=== PATIENT | male | born 1960 | race Caucasian/White ===

== ENCOUNTER 2020-04-25 18:04 | Inpatient (IN) | payer OTHER, SELFPAY ==
[2020-04-25] VITALS (20 sets, daily range): BP systolic 80–125; BP diastolic 55–106; PULSE 73–87; RESP 12–26; TEMP 36.7–37.3; O2SAT 88–98; BMI 30.6; BMI 29.7; BMI 29.8
[2020-04-25] MEDS: 0.9% Normal Saline 1,000 ML 999 ML IV ×3 (18:05→19:00)
--- NOTE | 2020-04-25 18:08 | CT_ITS ---
STUDY: CT BRAIN WITHOUT CONTRAST REASON FOR EXAM: Male, 59 years old. ALTERED MENTAL STATUS/MUMBLING RADIATION DOSAGE (If Supplied By Facility): CTDIvol = ( 44.99 ) mGy, DLP = ( 914.22 ) mGycm TECHNIQUE: Transaxial CT imaging of the brain was performed without administration of intravenous contrast material. Individualized dose optimization techniques were used for this CT. COMPARISON: No relevant priors. FINDINGS: Normal soft tissue structures. Normal calvarium. Normal size ventricles and extra-axial spaces for the patient''s age. Normal white matter tracts of the cerebral hemispheres. Normal basal ganglia and thalami. Normal brainstem. Normal cerebellum. There is no intracranial hemorrhage. There are no findings of an acute ischemic infarction. Normal visualized paranasal sinuses. CT/Brain/Head without Contrast IMPRESSION: No acute intracranial process. Electronically Signed: Sisi Cardozo MD at 19:37 EDT Tel , Service support ,
--- NOTE | 2020-04-25 18:08 | EKG12_ITS ---
Test Reason : Blood Pressure : / mmHG Vent. Rate : 080 BPM Atrial Rate : 080 BPM P-R Int : 242 ms QRS Dur : 154 ms QT Int : 442 ms P-R-T Axes : 046 -56 030 degrees QTc Int : 509 ms Sinus rhythm with 1st degree A-V block Right bundle branch block Left anterior fascicular block Bifascicular block Abnormal ECG Confirmed by MIKE HIRSCH, RAMÓN ([id number]), brands editor KIKI MIRAMONTES ([id number]) on 04/29/2020 11:03:35 AM Referred By: FRANCISCO Confirmed By:RAMÓN MCKEON MD
--- NOTE | 2020-04-25 18:18 | CT_ITS ---
STUDY: CT ABDOMEN AND PELVIS WITHOUT CONTRAST REASON FOR EXAM: Male, 59 years old. ABD PAIN N/V/D RADIATION DOSAGE (If Supplied By Facility): CTDIvol = ( 21.00 ) mGy, DLP = ( 1290.94 ) mGycm TECHNIQUE: Transaxial images were obtained from the dome of the diaphragm to the symphysis pubis without oral contrast, and without intravenous contrast. Sagittal and coronal images were reconstructed. Individualized dose optimization techniques were used for this CT. COMPARISON: None. FINDINGS: There is consolidation within the lower lobes, more pronounced on the right. The visualized portions of the heart are within normal limits. The lack of intravenous contrast limits evaluation of solid visceral organs. Normal liver. Normal gallbladder and extrahepatic biliary system. Normal spleen. Normal pancreas. Normal bilateral adrenal glands. Normal right kidney. Normal left kidney. Normal visualized stomach. Normal small intestine. There is fluid visualized throughout the colon and rectum. There is mild stranding noted adjacent to the rectum. The appendix is visualized and appears normal. There is diffuse atherosclerotic calcification of the abdominal aorta, without a demonstrated aneurysm. Normal inferior vena cava. Normal retroperitoneum. There is a Veloz catheter within an incompletely distended urinary bladder. Normal abdominal wall. Normal osseous structures. CT/Abdomen/Pelvis without Cont IMPRESSION: Fluid throughout the colon and rectum, a nonspecific finding which may be secondary to proctocolitis. Consolidation within the lower lobes, more pronounced on the right. Atherosclerosis. Electronically Signed: Sisi Cardozo MD at 19:56 EDT Tel , Service support ,
[2020-04-25 18:32] LABS: Absolute Lymphocyte Count 1.29 X10^3/uL (0.83-4.51); Absolute Neutrophil Count 15.3 X10^3/uL (2.0-7.7); Basophil# 0.04 X10^3/uL; Basophil% 0.2 % (0-1); Eosinophil# 0.21 X10^3/uL; Eosinophils% 1.1 % (0-5); Hemoglobin 13.8 g/dL (13.0-16.5); Lymphocyte # 1.29 X10^3/ul (4.0); Lymphocyte % 6.8 % (19-41); Mean Corp Hgb Conc 32.9 g/dL (32-36); Mean Corpuscular Hgb 30.8 pg (27.0-32.0); Mean Corpuscular Volume 93.8 fL (80-94); Mean Platelet Vol. 10.6 fl (6.2-12.0); Monocyte# 2.07 X10^3/uL; Monocyte% 10.9 % (0-10); NRBC Flagged by Analyzer 0 % (0-5); Neutrophil # 15.29 X10^3/uL (2.7-7.7); Neutrophil % 80.2 % (47-70); POSITIVE DIFFERENTIAL YES; POSITIVE MORPHOLOGY YES; Platelet Count 222 K/mm3 (150-450); RBC Distribution Width CV 14.6 % (11.6-14.6); Red Blood Count 4.48 M/mm3 (4.6-6.2); White Blood Count 19.1 K/mm3 (4.4-11.0)
[2020-04-25 18:36] LABS: International Normalized Ratio 3.1; Prothrombin Time (Protime)PT. 31.9 SECONDS (11.7-14.9)
[2020-04-25 18:57] LABS: ALB/GLOB Ratio 0.7 RATIO (0.9-2.4); AST(SGOT) 646 U/L (15-37); Alanine Aminotransfer ALT/SGPT 180 U/L (16-61); Albumin, Serum 2.7 g/dL (3.2-5.0); Alkaline Phosphatase 58 U/L (45-117); Anion Gap 11 (5-15); BUN 94 mg/dL (7-18); BUN/Creat Ratio 12.4 RATIO (10-20); Calcium,Total 7.7 mg/dL (8.5-10.1); Chloride 102 mmol/L (98-107); EST Glomerular Filtration Rate 8 mL/min (>60); Est Glom Filt Rate - Afr Amer 9 mL/min (>60); Estimated Creatinine Clearance 11.01 ml/min; Globulin 3.8 g/dL (2.2-4.2); Glucose 99 mg/dL (74-106); Potassium 5.4 mmol/L (3.5-5.1); Protein, Total 6.5 g/dL (6.4-8.2); Sodium Level 136 mmol/L (136-145)
[2020-04-25 19:09] LABS: Bacteria 0 SEEN /hpf (None Seen); Red Blood Cells-Urine 0 SEEN /hpf (0-5)
[2020-04-25 19:16] LABS: Color, Urine Amber (Yellow); Glucose, Dipstick 50 mg/dl (Normal); Ketone-Dipstick 5 mg/dl (Negative); Leukocyte Esterase-Dipstick 25 /ul (Negative); Nitrite-Dipstick Positive (Negative); Occult Blood-Urine 250 /ul (Negative); Protein-Dipstick 100 mg/dl (Negative); Specific Gravity, Urine 1.025 (1.002-1.030); Urine Bilirubin Dipstick 3 mg/dL (Negative); Urine Clarity Cloudy (Clear); Urine Urobilinogen 4 mg/dl (Normal)
[2020-04-25 19:18] LABS: Differential Indicated SCAN CRITERIA MET
--- NOTE | 2020-04-25 19:18 | RAD_ITS ---
STUDY: X-RAY CHEST REASON FOR EXAM: Male, 59 years old. pt from home with altered LOC per EMS. EMS states he has been declining for past 3 days. Pt responds to repeated stimulation and opens eyes but will not talk. Mumbled. TECHNIQUE: Single frontal view of the chest. COMPARISON: None. FINDINGS: There is elevation of the right hemidiaphragm. There is an ill-defined opacity within the right lower lung. Normal size heart. Normal mediastinum and danita. Normal visualized pulmonary arteries. Normal visualized aortic arch and descending thoracic aorta. Normal visualized thoracic spine. Normal visualized ribs, clavicles, and shoulders. There is no demonstrated abnormality of the visualized soft tissue structures of the upper abdomen. RAD/Chest 1 View (Portable) IMPRESSION: Right basilar atelectasis and/or pneumonia. Electronically Signed: Sisi Cardozo MD at 19:58 EDT Tel , Service support ,
[2020-04-25 19:36] LABS: Mucous, Urine 1+ /hpf (<or=2+)
[2020-04-25 19:37] LABS: Squamous Epithelial Cells - UA 0-5 SEEN /hpf (0-5); Transitional Epithelial - Ur 0-5 SEEN /hpf (0-5)
[2020-04-25 19:38] LABS: Renal Epithelial Cells 0 SEEN /hpf (0-5); White Blood Cells 0-5 SEEN /hpf (0-5)
--- NOTE | 2020-04-25 19:44 | ED.RN ---
upon arrival to ED pt was minimally responsive, only to painful stimuli. per EMS BP was 70/palp. Pt had two IV sites placed by squad and 2 liters of normal saline started. ED physician wanted those two liters to finish and an additional liter hung to get the required fluid resuscitation. Pt became responsive to verbal stimuli after BIPAP was placed and has been arousing and speaking in full sentences to and nurse since fluids have infused and BIPAP has been in place.
--- NOTE | 2020-04-25 20:00 | ED.DCSUM_ITS ---
- ER Visit Summary Date of Service: 04/25/20 Chief Complaint: Altered mental status History of Present Illness: The patient is a 59 M here by EMS. He arrives from home. His provides some history. He has not been feeling well for 3 days. He has had nausea, vomiting, diarrhea, decreased urine output and decreased oral intake. EMS thought he had slurred speech and a fever. The has not noticed any slurred speech or fevers. Patient has a history of COPD, CHF, A. fib, [place]. He takes Eliquis among his other medications. He is wheelchair-bound. He is full code but wants to avoid intubation Physical Examination: Afebrile. Initial blood pressure was 83/62 and he was 89% on a nonrebreather. Respiratory rate was 22. Patient had a GCS of 11, 3+2+6. Lungs diminished. Abdomen soft and nontender. Heart regular. Test Results: EKG showed sinus rhythm at a rate of 84 with first-degree AV block, right bundle branch block pattern and left anterior fascicular block. White count 19.1 and lactate 2.0. Potassium 5.4, BUN 94, creatinine 7.6. ALT 1 80 and AST 646. INR 3.1 and PTT is 39. Urinalysis shows leukocytes esterase, nitrites, but the microscopic did not show evidence of infection. Cultures are pending. COVID 19 testing is pending. Troponin indeterminate 0.074. CT brain showed nothing acute. CT abdomen and pelvis showed questionable proctocolitis with right lower lobe consolidation. Emergency Department Course and Treatment: Patient had 2 L started per EMS. He was on a nonrebreather but still hypoxic. He had a GCS of 11. He told me he does not want to be intubated. BiPAP was started. He had good response to BiPAP. His mental status improved. He was very alert, GCS 15. Repeat blood pressure was 102/89. I ordered an additional liter of normal saline, weight-based dosage. I suspect he is likely severe sepsis with hypovolemia. He is responding to fluids. His mental status has improved. His vitals have improved. He feels better. He will need inpatient care. I suspect with his GI symptoms, he does have some colitis. I started him on Zosyn and vancomycin. Will contact the hospitalist for further care. Chest x-ray showed possible right basilar atelectasis versus pneumonia. Patient is on antibiotics. His ABG showed pH of 7.29, CO2 33.4, O2 104. Hospitalist accepted the patient to the ICU. I spoke with Dr. Zapata from nephrology to give him a heads up. Treatment Plan: As above Disposition: Admit to ICU Impression: Hypooxic respiratory failure Severe sepsis Diarrheal illness Renal failure, hyperkalemia Hepatitis Elevated troponin This note was generated with [employer] dictation software. It may contain incorrect words, spelling, and punctuation that were not noted in review of the chart prior to signing ED Disposition - Plan for ED Patient: [facility]errals: [facility] [Primary Care Provider] -
--- NOTE | 2020-04-25 20:02 | HP.PCM_ITS ---
Problem List (1) Severe sepsis Status: Acute (2) Pneumonia Status: Acute (3) Proctocolitis Status: Acute History of Present Illness Date of Admission: 04/25/20 Chief Complaint: Lethargy The patient is a 59 year old M with a significant history of congestive heart failure; paroxysmal A. fib status post cardioversion; emphysema; fibromyalgia; and wheelchair-bound who presents emergency department with progressively worsening lethargy. His symptoms started about 5 days ago. Associated with his symptoms is nausea, vomiting and diarrhea. Further his has noticed that patient has a decreased frequency of urination and his urine output looks dark. At emergent part the patient was found to be hypotensive. He was hypoxic and he required non-rebreather mask. Later he was transitioned onto a BiPAP. His creatinine was severely elevated at 7.70. Past Medical History Medical History: Medical History (Last Reviewed 04/26/20 @ 01:[address] Michel Salcido MD) Emphysema of lung J43.9 Paroxysmal A-fib I48.0 Allergies No Known Allergies Allergy (Verified 04/25/20 18:11) Home Medications: Ambulatory Orders Medication Instructions Recorded Unobtainable 04/25/20 Surgical History: tonsillectomy, - - Temporal artery biopsy Lives: Spouse/ Significant Other Smoking Status: Former smoker Alcohol: None - *Family History Maternal History Items: - - Patient was adopted and does not know maternal medical history. Paternal History Items: - - Patient was adopted and does not know paternal medical history. Review of Systems Constitutional: Reports: Anorexia, Chills, Malaise, Weakness, Fatigue. Denies: Fever, Weight Change HEENT: Denies: Head Aches, Sinus Congestion, Sinus Drainage Cardiovascular: Denies: Chest Pain, Palpitations Respiratory: Reports: Shortness of Breath. Denies: Cough, Shortness of breath at rest, Sputum production Gastrointestinal: Reports: Diarrhea, Nausea, Vomiting. Denies: Abdominal Pain Genitourinary: Denies: Dysuria Musculoskeletal: Denies: Joint Pain, Joint Tenderness Skin: Denies: Rash, Wounds Neurological: Denies: Numbness, Tingling, Focal weakness Psychiatric: Denies: Anxiety, Depression, Homicidal Ideations, Suicidal Ideations Hematologic/ Lymphatic: Denies: Easy Bruising, Easy Bleeding VTE Information - Inpt Only VTE Present on Admission: No VTE Mechan Device Prophylaxis: None VTE Pharm Prophylaxis ordered?: Yes Patient Problems: Active and Suspected Problems (Last Updated 04/26/20 @ 01:[address] Michel Salcido MD) Severe sepsis (Acute) Pneumonia (Acute) Proctocolitis (Acute) - Physical Exam Vitals/I&O's: Vital Signs Temp Pulse Resp BP Pulse Ox 99.2 F H 77 18 102/89 H 94 04/25/20 19:05 04/25/20 19:05 04/25/20 19:05 04/25/20 19:05 04/25/20 19:05 Oxygen Delivery Method Bi-pap Weight: 99.5 kg Body Mass Index (BMI) 30.6 Finger Stick Blood Glucose 122 Intake and Output for Last 24 Hours 04/23/20 04/24/20 04/25/20 23:59 23:59 23:59 Intake Total 1000 / 1000 Balance 1000 / 1000 General: Alert, Oriented x3, Cooperative HEENT: Atraumatic, PERRLA, EOMI, Normocephalic Neck: Supple, No JVD, Negative Carotid Bruits Lungs: Rales - Right base, Tachypneic, Using Accessory Muscles Cardiovascular: Regular rate, Normal S1, Normal S2, No murmurs Abdomen: Bowel Sounds Present, Soft, Non Tender Extremities: No edema, Capillary Refill Less than 3 Seconds Skin: No rashes, No breakdown Musculoskeletal: No Tenderness to Palpation of Joints or Extremities Neurological: Cranial nerves II-XII grossly intact Psych/Mental Status: Normal Affect, Appropriate Laboratory Results 04/25/20 18:10: WBC 19.1 H, RBC 4.48 L, Hgb 13.8, Hct 42.0, MCV 93.8, MCH 30.8, MCHC 32.9, RDW Std Deviation 50.0 H, RDW Coeff of Stephenie 14.6, Plt Count 222, MPV 10.6, Immature Gran % (Auto) 0.800, Neut % (Auto) 80.2 H, Lymph % (Auto) 6.8 L, [place] % (Auto) 10.9 H, Eos % (Auto) 1.1, Baso % (Auto) 0.2, Absolute Neuts (auto) 15.3 H, Absolute Lymphs (auto) 1.29, Nucleated RBC % 0, Differential Comment , Diff Path Review March04/25/20 18:10: PT 31.9 H, INR 3.1, APTT 39.0 H 04/25/20 18:10: Sodium 136, Potassium 5.4 H, Chloride 102, Carbon Dioxide 23.0, Anion Gap 11, BUN 94 H, Creatinine 7.60 H*, Estim Creat Clear Calc 11.01, Est GFR (MDRD) Af Amer 9 L, Est GFR (MDRD) Non-Af 8 L, BUN/Creatinine Ratio 12.4, Glucose 99, Calcium 7.7 L, Total Bilirubin 0.80, AST 646 H, ALT 180 H, Alkaline Phosphatase 58, Troponin I 0.074 H, Total Protein 6.5, Albumin 2.7 L, Globulin 3.8, Albumin/Globulin Ratio 0.7 L 04/25/20 18:10: Lactic Acid 2.0 04/25/20 18:20: COVID-19 (HERMILA) Pending 04/25/20 18:55: Urine Color Bernadette, Urine Clarity Cloudy, Urine pH 5.0, Ur Specific Mershon 1.025, Urine Protein 100 H, Urine Glucose (UA) 50 H, Urine Ket ones 5 H, Urine Occult Blood 250 H, Urine Nitrite Positive H, Urine Bilirubin 3 H, Urine Urobilinogen 4 H, Ur Leukocyte Esterase 25 H, Urine RBC 0 SEEN, Urine WBC 0-5 SEEN, Ur Squamous Epith Cells 0-5 SEEN, Ur Transition Epith Cell 0-5 SEEN, Ur Renal Epithelial Cell 0 SEEN, Urine Bacteria 0 SEEN, Urine Mucus 1+ Current Medications Piperacillin Sod/Tazobactam (Sod 3.375 gm/ Sodium Chloride) 50 mls @ 100 mls/hr IV X1 ONE Stop: 04/25/20 20:27 Vancomycin HCl 1,500 mg/ (Sodium Chloride) 530 mls @ 250 mls/hr IV X1 ONE Stop: 04/25/20 22:37 Assessment/Plan All Active Problems (Last Updated 04/26/20 @ 01:[address] Michel Salcido MD) Severe sepsis (Acute) Pneumonia (Acute) Proctocolitis (Acute) The patient is a 59 year old M with a significant history of congestive heart fa ilure; paroxysmal A. fib status post cardioversion; emphysema; fibromyalgia; and wheelchair-bound who presents emergency department with progressively worsening lethargy; and found to have hypotension; tachypnea; leukocytosis; elevated creatinine; elevated lactic acid; and radiographic evidence of right basal atelectasis and or/pneumonia; and abdomen pelvis CT findings of fluid through the colon and rectum showing consolidation within the lower lobes of the lung. Severe sepsis Likely secondary to pneumonia and proctocolitis. Received vancomycin and Zosyn at emergency department. Because patient is in VON I will not continue Zosyn. Cefepime ordered. Vancomycin IV ordered. Will treat empirically for C. difficile. We will get stool studies including C. difficile studies. Received at 30 MS per kilogram bolus of normal saline per septic shock protocol. We will continue patient on maintenance normal saline infusion. Blood cultures ordered at emergency department; follow. Initial lactic acid was 2. Trended. Repeat lactic was 2.2. Admit to intensive care unit. Wooden Bar[employer]ic consult. Covid screen was negative. Chest x-ray does not look viral pattern. Less risk of cough. Community-acquired pneumonia Likely gram-positive or gram-negative. Vancomycin and cefepime ordered. Strep pneumonia and Legionella urine antigen ordered. Placed on BiPAP at emergency department; continued. Treatment as above. Acute proctocolitis CT of abdomen and pelvics pointed towards acute proctocolitis. reports history of diverticulitis. Treatment with cefepime and vancomycin. N.p.o. for now. VON: On presentation his creatinine was 7.6. Review of community records show that on 07/19/2019 his creatinine was 1.32. His BUN on presentation was 94. BUN over creatinine is 12.4. Likely prerenal going into intrinsic renal. Likely secondary to severe dehydration and severe sepsis. Discussed emergency department doctor to notify commercial pilot. Nephrology will follow. Inpatient ne phrology consult. Trend BMP. Avoid nephrotoxins. IV hydration. Rhabdomyolysis Patient with microscopic hematuria. CPK was ordered. It returned as 25,268. IV fluids as above. History of congestive heart failure Records including echocardiogram are not available. [facility] Judicious use of IV fluids. Elevated troponin Like secondary to demand ischemia Trend. Elevated liver enzymes Likely second to severe sepsis. Trend. Noted to have elevated INR. Trend INR. DVT prophylaxis Subcutaneous Lovenox. Inpatient E&M: [id number] Init Hosp L3
[2020-04-25 20:50] LABS: Blood Gas Specimen Type ART; EPAP 10; FI02 80; IPAP 20; O2 Delivery Device Bi Pap; SITE R RADIAL; Time Given 2005
[2020-04-25 20:51] LABS: Bicarbonate 16.4 mmol/L (22-26); PO2 104 mmHG (75-100); SO2 97 % (95-99); Total Carbon Dioxide 17 mmol/L; pCO2 33.4 mmHg (35-45); pH 7.29 (7.35-7.45)
--- NOTE | 2020-04-25 21:30 | ED.RN ---
Report called to icu, report give to JANAY Santana.
[2020-04-25 22:22] LABS: Reflex Lactate? Y
[2020-04-25] MEDS: 0.9% Normal Saline 1,000 ML 100 ML IV (23:21)
[2020-04-25] MEDS: Heparin Injection (Vial) 5,000 UNIT/ML VIAL 5000 UNIT SC (23:22)
[2020-04-25 23:25] LABS: Lactic Acid 2.2 mmol/L (0.4-1.9)
[2020-04-25] MEDS: 0.9% Saline Lock 10 ML Syringe IV (23:29)
[2020-04-26] VITALS (47 sets, daily range): BP systolic 66–127; BP diastolic 32–106; PULSE 68–113; RESP 12–26; TEMP 36.4–38.8; O2SAT 87–99
[2020-04-26 00:32] LABS: CPK Total, Creatine Kinase 25268 U/L (39-308)
[2020-04-26] MEDS: Acetaminophen 325 MG Tablet 650 MG PO (00:38)
[2020-04-26 00:43] LABS: M R Staph aureus DNA By PCR Negative (Negative); Probe Check PASS; Specimen Processing Control PASS
[2020-04-26] MEDS: 0.9% Saline Lock 10 ML Syringe IV ×2 (02:16→10:24)
--- NOTE | 2020-04-26 03:10 | PCM.RX.CS ---
Consult Pharmacy has been consulted to manage selected antiobiotic: Vancomycin Type of Consult: New start Suspected Infection: Sepsis Labs: Sodium 136 mmol/L (136-145) 04/25/20 18:10 Potassium 5.4 mmol/L (3.5-5.1) H 04/25/20 18:10 Chloride 102 mmol/L (98-107) 04/25/20 18:10 Carbon Dioxide 23.0 mmol/L (21.0-32.0) 04/25/20 18:10 Anion Gap 11 (5-15) 04/25/20 18:10 BUN 94 mg/dL (7-18) H 04/25/20 18:10 Creatinine 7.60 mg/dL (0.70-1.30) H* 04/25/20 18:10 Est GFR (MDRD) Af Amer 9 mL/min (>60) L 04/25/20 18:10 Est GFR (MDRD) Non-Af 8 mL/min (>60) L 04/25/20 18:10 BUN/Creatinine Ratio 12.4 RATIO (10-20) 04/25/20 18:10 Glucose 99 mg/dL (74-106) 04/25/20 18:10 Microbiology: Microbiology 04/25/20 22:15 Stool C. difficile DNA Amplification - Final 04/25/20 22:15 Stool Stool Lactoferrin - Final 04/25/20 18:55 Urine Catheter - Catheter Legionella Antigen - Final 04/25/20 18:55 Urine Catheter - Catheter Streptococcus pneumoniae Antigen (M - Final Goal Trough: 15-20 mcg/mL Pharmacy Plan for Drug Dosing: Pharmacy Service will continue to monitor and adjust dosing as required. Medications Discontinued Medications Vancomycin HCl 1,500 mg/ (Sodium Chloride) 530 mls @ 250 mls/hr IV X1 ONE Stop: 04/25/20 22:37 Last Admin: 04/25/20 23:18 Dose: Infused Documented by: Due to crcl < 20 and not on HD, random trough ordered for 04/27 with am labs, next dose to be ordered based on random lavel. Follow-Up Labs: Trough Vancomycin Labs to be done on [date and time ordered]: RANDOM 04/27 WITH AM LABS
--- NOTE | 2020-04-26 03:40 | SEPSISNOTE ---
Sepsis Note - Physical Exam/Vitals Objective: Brain CT 04/25/20 18:08 IMPRESSION: No acute intracranial process. Electronically Signed: Sisi Cardozo MD at 19:37 EDT Tel , Service support , Abdomen/Pelvis CT 04/25/20 18:18 IMPRESSION: Fluid throughout the colon and rectum, a nonspecific finding which may be secondary to proctocolitis. Consolidation within the lower lobes, more pronounced on the right. Atherosclerosis. Electronically Signed: Sisi Cardozo MD at 19:56 EDT Tel , Service support , Chest X-Ray 04/25/20 19:18 IMPRESSION: Right basilar atelectasis and/or pneumonia. Electronically Signed: Sisi Cardozo MD at 19:58 EDT Tel , Service support , Temp Pulse Resp BP Pulse Ox 100.7 F H 79 18 84/64 L 97 04/26/20 02:00 04/26/20 03:30 04/26/20 03:30 04/26/20 03:30 04/26/20 03:30 04/26/20 04/25/20 04/25/20 01:15 22:30 22:30 WBC RBC Hgb Hct MCV MCH MCHC RDW Std Deviation RDW Coeff of Stephenie Plt Count MPV Immature Gran % (Auto) Neut % (Auto) Lymph % (Auto) [place] % (Auto) Eos % (Auto) Baso % (Auto) Absolute Neuts (auto) Absolute Lymphs (auto) Nucleated RBC % Differential Comment Diff Path Review PT INR APTT Specimen Type Sample Site pH Bicarbonate Actual POC Total CO2 Base Excess O2 Saturation O2 % ABG pCO2 ABG pO2 Jb Test O2 Delivery Device EPAP IPAP Blood Gas Notified Whom Blood Gas Notified Time Sodium Potassium Chloride Carbon Dioxide Anion Gap BUN Creatinine Estim Creat Clear Calc Est GFR (MDRD) Af Amer Est GFR (MDRD) Non-Af BUN/Creatinine Ratio Glucose Lactic Acid 2.2 H* Calcium Phosphorus Magnesium Total Bilirubin AST ALT Alkaline Phosphatase Total Creatine Kinase Troponin I 0.075 H Total Protein Albumin Globulin Albumin/Globulin Ratio Urine Color Urine Clarity Urine pH Ur Specific [place] Urine Protein Urine Glucose (UA) Urine Ketones Urine Occult Blood Urine Nitrite Urine Bilirubin Urine Urobilinogen Ur Leukocyte Esterase Urine RBC Urine WBC Ur Squamous Epith Cells Ur Transition Epith Cell Ur Renal Epithelial Cell Urine Bacteria Urine Mucus Stl Giardia Antigen COVID-19 (HERMILA) Hepatitis A IgM Ab Hep Bs Antigen Hep B Core IgM Ab Hepatitis C Ab (EIA) MRSA (PCR) Negative 04/25/20 04/25/20 04/25/20 22:15 22:15 22:15 WBC RBC Hgb Hct MCV MCH MCHC RDW Std Deviation RDW Coeff of Stephenie Plt Count MPV Immature Gran % (Auto) Neut % (Auto) Lymph % (Auto) [place] % (Auto) Eos % (Auto) Baso % (Auto) Absolute Neuts (auto) Absolute Lymphs (auto) Nucleated RBC % Differential Comment Diff Path Review PT INR APTT Specimen Type Sample Site pH Bicarbonate Actual POC Total CO2 Base Excess O2 Saturation O2 % ABG pCO2 ABG pO2 Jb Test O2 Delivery Device EPAP IPAP Blood Gas Notified Whom Blood Gas Notified Time Sodium Potassium Chloride Carbon Dioxide Anion Gap BUN Creatinine Estim Creat Clear Calc Est GFR (MDRD) Af Amer Est GFR (MDRD) Non-Af BUN/Creatinine Ratio Glucose Lactic Acid Calcium Phosphorus Pending Magnesium Pending Total Bilirubin AST ALT Alkaline Phosphatase Total Creatine Kinase Troponin I 0.067 H Total Protein Albumin Globulin Albumin/Globulin Ratio Urine Color Urine Clarity Urine pH Ur Specific [place] Urine Protein Urine Glucose (UA) Urine Ketones Urine Occult Blood Urine Nitrite Urine Bilirubin Urine Urobilinogen Ur Leukocyte Esterase Urine RBC Urine WBC Ur Squamous Epith Cells Ur Transition Epith Cell Ur Renal Epithelial Cell Urine Bacteria Urine Mucus Stl Giardia Antigen Pending COVID-19 (HERMILA) Hepatitis A IgM Ab Hep Bs Antigen Hep B Core IgM Ab Hepatitis C Ab (EIA) MRSA (PCR) 04/25/20 04/25/20 04/25/20 22:15 22:15 20:05 WBC RBC Hgb Hct MCV MCH MCHC RDW Std Deviation RDW Coeff of Stephenie Plt Count MPV Immature Gran % (Auto) Neut % (Auto) Lymph % (Auto) [place] % (Auto) Eos % (Auto) Baso % (Auto) Absolute Neuts (auto) Absolute Lymphs (auto) Nucleated RBC % Differential Comment Diff Path Review PT INR APTT Specimen Type ART Sample Site R RADIAL pH 7.29 L Bicarbonate Actual 16.4 L POC Total CO2 17 Base Excess Pending O2 Saturation 97 O2 % 80 ABG pCO2 33.4 L ABG pO2 104 H Jb Test NA O2 Delivery Device Bi Pap EPAP 10 IPAP 20 Blood Gas Notified Whom ED Blood Gas Notified Time 2004 Sodium Potassium Chloride Carbon Dioxide Anion Gap BUN Creatinine Estim Creat Clear Calc Est GFR (MDRD) Af Amer Est GFR (MDRD) Non-Af BUN/Creatinine Ratio Glucose Lactic Acid Calcium Phosphorus Magnesium Total Bilirubin AST ALT Alkaline Phosphatase Total Creatine Kinase 13408 H Troponin I Total Protein Albumin Globulin Albumin/Globulin Ratio Urine Color Urine Clarity Urine pH Ur Specific [place] Urine Protein Urine Glucose (UA) Urine Ketones Urine Occult Blood Urine Nitrite Urine Bilirubin Urine Urobilinogen Ur Leukocyte Esterase Urine RBC Urine WBC Ur Squamous Epith Cells Ur Transition Epith Cell Ur Renal Epithelial Cell Urine Bacteria Urine Mucus Stl Giardia Antigen Cancelled COVID-19 (HERMILA) Hepatitis A IgM Ab Pending Hep Bs Antigen Pending Hep B Core IgM Ab Pending Hepatitis C Ab (EIA) Pending MRSA (PCR) 04/25/20 04/25/20 04/25/20 18:55 18:20 18:10 WBC RBC Hgb Hct MCV MCH MCHC RDW Std Deviation RDW Coeff of Stephenie Plt Count MPV Immature Gran % (Auto) Neut % (Auto) Lymph % (Auto) [place] % (Auto) Eos % (Auto) Baso % (Auto) Absolute Neuts (auto) Absolute Lymphs (auto) Nucleated RBC % Differential Comment Diff Path Review PT INR APTT Specimen Type Sample Site pH Bicarbonate Actual POC Total CO2 Base Excess O2 Saturation O2 % ABG pCO2 ABG pO2 Jb Test O2 Delivery Device EPAP IPAP Blood Gas Notified Whom Blood Gas Notified Time Sodium Potassium Chloride Carbon Dioxide Anion Gap BUN Creatinine Estim Creat Clear Calc Est GFR (MDRD) Af Amer Est GFR (MDRD) Non-Af BUN/Creatinine Ratio Glucose Lactic Acid 2.0 Calcium Phosphorus Magnesium Total Bilirubin AST ALT Alkaline Phosphatase Total Creatine Kinase Troponin I Total Protein Albumin Globulin Albumin/Globulin Ratio Urine Color [place]ette Urine Clarity Cloudy Urine pH 5.0 Ur Specific [place] 1.025 Urine Protein 100 H Urine Glucose (UA) 50 H Urine Ketones 5 H Urine Occult Blood 250 H Urine Nitrite Positive H Urine Bilirubin 3 H Urine Urobilinogen 4 H Ur Leukocyte Esterase 25 H Urine RBC 0 SEEN Urine WBC 0-5 SEEN Ur Squamous Epith Cells 0-5 SEEN Ur Transition Epith Cell 0-5 SEEN Ur Renal Epithelial Cell 0 SEEN Urine Bacteria 0 SEEN Urine Mucus 1+ Stl Giardia Antigen COVID-19 (HERMILA) Not Detected Hepatitis A IgM Ab Hep Bs Antigen Hep B Core IgM Ab Hepatitis C Ab (EIA) MRSA (PCR) 04/25/20 04/25/20 04/25/20 18:10 18:10 18:10 WBC 19.1 H RBC 4.48 L Hgb 13.8 Hct 42.0 MCV 93.8 MCH 30.8 MCHC 32.9 RDW Std Deviation 50.0 H RDW Coeff of Stephenie 14.6 Plt Count 222 MPV 10.6 Immature Gran % (Auto) 0.800 Neut % (Auto) 80.2 H Lymph % (Auto) 6.8 L [place] % (Auto) 10.9 H Eos % (Auto) 1.1 Baso % (Auto) 0.2 Absolute Neuts (auto) 15.3 H Absolute Lymphs (auto) 1.29 Nucleated RBC % 0 Differential Comment Diff Path Review May foll PT 31.9 H INR 3.1 APTT 39.0 H Specimen Type Sample Site pH Bicarbonate Actual POC Total CO2 Base Excess O2 Saturation O2 % ABG pCO2 ABG pO2 Jb Test O2 Delivery Device EPAP IPAP Blood Gas Notified Whom Blood Gas Notified Time Sodium 136 Potassium 5.4 H Chloride 102 Carbon Dioxide 23.0 Anion Gap 11 BUN 94 H Creatinine 7.60 H* Estim Creat Clear Calc 11.01 Est GFR (MDRD) Af Amer 9 L Est GFR (MDRD) Non-Af 8 L BUN/Creatinine Ratio 12.4 Glucose 99 Lactic Acid Calcium 7.7 L Phosphorus Magnesium Total Bilirubin 0.80 AST 646 H ALT 180 H Alkaline Phosphatase 58 Total Creatine Kinase Troponin I 0.074 H Total Protein 6.5 Albumin 2.7 L Globulin 3.8 Albumin/Globulin Ratio 0.7 L Urine Color Urine Clarity Urine pH Ur Specific [place] Urine Protein Urine Glucose (UA) Urine Ketones Urine Occult Blood Urine Nitrite Urine Bilirubin Urine Urobilinogen Ur Leukocyte Esterase Urine RBC Urine WBC Ur Squamous Epith Cells Ur Transition Epith Cell Ur Renal Epithelial Cell Urine Bacteria Urine Mucus Stl Giardia Antigen COVID-19 (HERMILA) Hepatitis A IgM Ab Hep Bs Antigen Hep B Core IgM Ab Hepatitis C Ab (EIA) MRSA (PCR) - Attestation Sepsis Attestation: Sepsis re-evaluation was performed - With systolic blood pressure less than 90 after receiving 30 mg/kg bolus of IV normal saline will order Levophed to keep map above 65.
[2020-04-26] MEDS: TITRATION PARAMETER CHANGE 1 EACH IV ×2 (04:06→14:01)
[2020-04-26 05:00] LABS: Absolute Lymphocyte Count 0.83 X10^3/uL (0.83-4.51); Absolute Neutrophil Count 11.6 X10^3/uL (2.0-7.7); Basophil# 0.03 X10^3/uL; Basophil% 0.2 % (0-1); Eosinophil# 0.01 X10^3/uL; Eosinophils% 0.1 % (0-5); Hematocrit 38.1 % (40-54); Hemoglobin 12.1 g/dL (13.0-16.5); Lymphocyte # 0.83 X10^3/ul (4.0); Lymphocyte % 6.1 % (19-41); Mean Corp Hgb Conc 31.8 g/dL (32-36); Mean Corpuscular Hgb 30.7 pg (27.0-32.0); Mean Corpuscular Volume 96.7 fL (80-94); Mean Platelet Vol. 10.8 fl (6.2-12.0); Monocyte# 1.02 X10^3/uL; Monocyte% 7.5 % (0-10); NRBC Flagged by Analyzer 0 % (0-5); Neutrophil # 11.62 X10^3/uL (2.7-7.7); Neutrophil % 85.8 % (47-70); POSITIVE MORPHOLOGY YES; Platelet Count 183 K/mm3 (150-450); RBC Distribution Width CV 14.9 % (11.6-14.6); RBC Distribution Width SD 52.7 fl (35.1-43.9); Red Blood Count 3.94 M/mm3 (4.6-6.2); White Blood Count 13.6 K/mm3 (4.4-11.0)
[2020-04-26 05:01] LABS: Differential Indicated SCAN CRITERIA MET
[2020-04-26 05:08] LABS: Prothrombin Time (Protime)PT. 30.8 SECONDS (11.7-14.9)
[2020-04-26] MEDS: Heparin Injection (Vial) 5,000 UNIT/ML VIAL 5000 UNIT SC (05:44)
[2020-04-26 05:47] LABS: ALB/GLOB Ratio 0.7 RATIO (0.9-2.4); AST(SGOT) 623 U/L (15-37); Alanine Aminotransfer ALT/SGPT 160 U/L (16-61); Albumin, Serum 2.3 g/dL (3.2-5.0); Alkaline Phosphatase 52 U/L (45-117); Anion Gap 12 (5-15); BUN 106 mg/dL (7-18); BUN/Creat Ratio 13.3 RATIO (10-20); Calcium,Total 6.7 mg/dL (8.5-10.1); Chloride 106 mmol/L (98-107); Creatinine, Serum 7.95 mg/dL (0.70-1.30); EST Glomerular Filtration Rate 7 mL/min (>60); Est Glom Filt Rate - Afr Amer 9 mL/min (>60); Estimated Creatinine Clearance 10.85 ml/min; Globulin 3.5 g/dL (2.2-4.2); Glucose 100 mg/dL (74-106); Potassium 6.3 mmol/L (3.5-5.1); Protein, Total 5.8 g/dL (6.4-8.2); Sodium Level 138 mmol/L (136-145)
[2020-04-26 06:01] LABS: Differential Comment SCANNED
--- NOTE | 2020-04-26 06:02 | PCM.CON.CC ---
Reason for Consult Date of Consultation: 04/26/20 Reason for Consultation: Severe sepsis History of Present Illness: The patient is a 59-year-old male, with a history as outlined below, who presented to the emergency department on April 25 with a constellation of symptoms including altered mentation, nausea, vomiting, diarrhea, decreased p.o. intake and fever. History pertinent to the patient's hospitalization was obtained primarily via chart review, as the patient is currently too lethargic to answer questions. I did call and personally speak with the patient's , Tena, who indicated that the patient has been ill for approximately 5 days. She stated that his symptoms initially began when he started acting strangely. Around Tuesday of this past week, the patient developed nausea, emesis and diarrhea. She also reported a decrease in his urine output and dark-colored urine of several weeks duration. She stated that much of what the patient was saying did not make sense to her. The patient is wheelchair-bound at his baseline. He does have a prior smoking history. The patient's did confirm that he should remain a full code and proceed with intubation, if clinically indicated. On presentation to the emergency department, the patient was noted to be afebrile. Hemodynamics were rather tenuous. The patient was hypoxemic and tachypneic, requiring the initiation of BiPAP therapy. Laboratory evaluation revealed an elevated white blood cell count to 19,000. INR was elevated at 3.1. Chemistry profile was notable for a potassium of 5.4, BUN of 94 and creatinine of 7.60. Lactate was elevated to 2.0. AST and ALT were increased to 646 and 180, respectively. Total CK was increased to 25,268. Initial troponin was mildly elevated to 0.074. Urinalysis was positive for nitrites and leukocyte esterase. Coronavirus PCR was negative. CT head revealed no acute intracranial process. CT abdomen/pelvis revealed fluid throughout the colon and rectum, which could be secondary to proctocolitis. There was also evidence of bibasilar consolidation, more pronounced in the right lung. The patient received supplemental IV fluid hydration and was started on broad-spectrum antimicrobials. He was subsequently admitted to the medical intensive care unit for further management. Over concerns for patient lethargy and impending respiratory failure, following discussion with the patient's , the decision was made to intubate the patient for airway protection. Bedside Intubation Indication: Impending Respiratory Failure Consent was obtained from: The patient was placed in the appropriate sniffing position. Preoxygenated sedation via BIPAP was provided for a minimum of 3 minutes. The patient had continuous cardiac as well as pulse oximetry monitoring during the procedure. Procedure sedation was provided by the administration of 4mg of versed and 20mg of Etomidate. Direct laryngoscopy was then performed using a number 4 mac blade, which revealed a grade 1 view. A 8.0 mm endotracheal tube was visualized advancing between the cords to the level of 24 cm at the lip. The stylette was then removed and discarded. Tube placement was confirmed by fogging in the tube along with equal and bilateral breath sounds. Colorimetric change was visualized on the CO2 meter. The cuff was then inflated and the tube secured using a commercially available device. A good pulse oximetry waveform was seen on the monitor throughout the procedure. A portable chest x-ray has been ordered to confirm appropriate placement. The patient tolerated the procedure well. Past Medical History Medical History: Medical History (Last Reviewed 04/26/20 @ 01:[address] Michel Salcido MD) Emphysema of lung J43.9 Paroxysmal A-fib I48.0 Allergies No Known Allergies Allergy (Verified 04/25/20 18:11) Home Medications: Ambulatory Orders Medication Instructions Recorded Unobtainable 04/25/20 Surgical History: tonsillectomy, - - Temporal artery biopsy Lives: Spouse/ Significant Other Smoking Status: Former smoker Alcohol: None - *Family History Maternal History Items: - - Patient was adopted and does not know maternal medical history. Paternal History Items: - - Patient was adopted and does not know paternal medical history. Review of Systems Unable to obtain accurate/complete ROS d/t: Due to encephalopathy Patient Problems: Active and Suspected Problems (Last Reviewed 04/26/20 @ 01:[address] Michel Salcido MD) Septic shock (Acute) Objective: The patient's most recent lab work, culture data and imaging studies have all been personally reviewed. - Physical Exam Vitals/I&O's: Vital Signs Temp Pulse Resp BP Pulse Ox 101.6 F H 87 20 H 100/64 96 04/26/20 04:44 04/26/20 05:45 04/26/20 05:30 04/26/20 05:45 04/26/20 05:30 Oxygen Delivery Method Bi-pap Weight: 220 lb 3.869 oz Body Mass Index (BMI) 29.7 Finger Stick Blood Glucose 122 Intake and Output for Last 24 Hours 04/24/20 04/25/20 04/26/20 23:59 23:59 23:59 Intake Total 3680 / 3740 709.65 / 709.65 Output Total 110 / 110 Balance 3680 / 3690 599.65 / 599.65 General: Lethargic, - - Will open eyes transiently to both verbal and tactile stimulation. Appears acutely ill. HEENT: Atraumatic, Normocephalic Oral: Dry Mucosa, - - BiPAP mask in place Neck: Supple, No Nodes, Trachea Midline Lungs: No rhonchi, No wheeze, Diminished, Rales, Tachypneic Cardiovascular: Normal S1, Normal S2, Tachycardic Abdomen: Bowel Sounds Present, Soft, Distended, Tender Extremities: No clubbing, No cyanosis, No edema Skin: No breakdown Musculoskeletal: No Muscle Wasting Lymphatic: No Cervical, Supraclavicular, or Inguinal Adenopathy Neurological: - - No readily identifiable focal neurological deficits Psych/Mental Status: Flat Affect Labs (Last 48 Hours) 04/25/20 04/25/20 04/25/20 18:10 18:10 18:10 WBC 19.1 H RBC 4.48 L Hgb 13.8 Hct 42.0 MCV 93.8 MCH 30.8 MCHC 32.9 RDW Std Deviation 50.0 H RDW Coeff of Stephenie 14.6 Plt Count 222 MPV 10.6 Immature Gran % (Auto) 0.800 Neut % (Auto) 80.2 H Lymph % (Auto) 6.8 L Rock % (Auto) 10.9 H Eos % (Auto) 1.1 Baso % (Auto) 0.2 Absolute Neuts (auto) 15.3 H Absolute Lymphs (auto) 1.29 Nucleated RBC % 0 Differential Comment Diff Path Review March foll PT 31.9 H INR 3.1 APTT 39.0 H Specimen Type Sample Site pH Bicarbonate Actual POC Total CO2 Base Excess O2 Saturation O2 % ABG pCO2 ABG pO2 Jb Test O2 Delivery Device EPAP IPAP Blood Gas Notified Whom Blood Gas Notified Time Sodium 136 Potassium 5.4 H Chloride 102 Carbon Dioxide 23.0 Anion Gap 11 BUN 94 H Creatinine 7.60 H* Estim Creat Clear Calc 11.01 Est GFR (MDRD) Af Amer 9 L Est GFR (MDRD) Non-Af 8 L BUN/Creatinine Ratio 12.4 Glucose 99 Lactic Acid Calcium 7.7 L Phosphorus Magnesium Total Bilirubin 0.80 AST 646 H ALT 180 H Alkaline Phosphatase 58 Total Creatine Kinase Troponin I 0.074 H Total Protein 6.5 Albumin 2.7 L Globulin 3.8 Albumin/Globulin Ratio 0.7 L Urine Color Urine Clarity Urine pH Ur Specific [place] Urine Protein Urine Glucose (UA) Urine Ketones Urine Occult Blood Urine Nitrite Urine Bilirubin Urine Urobilinogen Ur Leukocyte Esterase Urine RBC Urine WBC Ur Squamous Epith Cells Ur Transition Epith Cell Ur Renal Epithelial Cell Urine Bacteria Urine Mucus Stl Giardia Antigen COVID-19 (HERMILA) Hepatitis A IgM Ab Hep Bs Antigen Hep B Core IgM Ab Hepatitis C Ab (EIA) MRSA (PCR) 04/25/20 04/25/20 04/25/20 18:10 18:20 18:55 WBC RBC Hgb Hct MCV MCH MCHC RDW Std Deviation RDW Coeff of Stephenie Plt Count MPV Immature Gran % (Auto) Neut % (Auto) Lymph % (Auto) Rock % (Auto) Eos % (Auto) Baso % (Auto) Absolute Neuts (auto) Absolute Lymphs (auto) Nucleated RBC % Differential Comment Diff Path Review PT INR APTT Specimen Type Sample Site pH Bicarbonate Actual POC Total CO2 Base Excess O2 Saturation O2 % ABG pCO2 ABG pO2 Jb Test O2 Delivery Device EPAP IPAP Blood Gas Notified Whom Blood Gas Notified Time Sodium Potassium Chloride Carbon Dioxide Anion Gap BUN Creatinine Estim Creat Clear Calc Est GFR (MDRD) Af Amer Est GFR (MDRD) Non-Af BUN/Creatinine Ratio Glucose Lactic Acid 2.0 Calcium Phosphorus Magnesium Total Bilirubin AST ALT Alkaline Phosphatase Total Creatine Kinase Troponin I Total Protein Albumin Globulin Albumin/Globulin Ratio Urine Color Bernadette Urine Clarity Cloudy Urine pH 5.0 Ur Specific [place] 1.025 Urine Protein 100 H Urine Glucose (UA) 50 H Urine Ketones 5 H Urine Occult Blood 250 H Urine Nitrite Positive H Urine Bilirubin 3 H Urine Urobilinogen 4 H Ur Leukocyte Esterase 25 H Urine RBC 0 SEEN Urine WBC 0-5 SEEN Ur Squamous Epith Cells 0-5 SEEN Ur Transition Epith Cell 0-5 SEEN Ur Renal Epithelial Cell 0 SEEN Urine Bacteria 0 SEEN Urine Mucus 1+ Stl Giardia Antigen COVID-19 (HERMILA) Not Detected Hepatitis A IgM Ab Hep Bs Antigen Hep B Core IgM Ab Hepatitis C Ab (EIA) MRSA (PCR) 04/25/20 04/25/20 04/25/20 20:05 22:15 22:15 WBC RBC Hgb Hct MCV MCH MCHC RDW Std Deviation RDW Coeff of Stephenie Plt Count MPV Immature Gran % (Auto) Neut % (Auto) Lymph % (Auto) Rock % (Auto) Eos % (Auto) Baso % (Auto) Absolute Neuts (auto) Absolute Lymphs (auto) Nucleated RBC % Differential Comment Diff Path Review PT INR APTT Specimen Type ART Sample Site R RADIAL pH 7.29 L Bicarbonate Actual 16.4 L POC Total CO2 17 Base Excess Pending O2 Saturation 97 O2 % 80 ABG pCO2 33.4 L ABG pO2 104 H Jb Test NA O2 Delivery Device Bi Pap EPAP 10 IPAP 20 Blood Gas Notified Whom ED Blood Gas Notified Time 2004 Sodium Potassium Chloride Carbon Dioxide Anion Gap BUN Creatinine Estim Creat Clear Calc Est GFR (MDRD) Af Amer Est GFR (MDRD) Non-Af BUN/Creatinine Ratio Glucose Lactic Acid Calcium Phosphorus Magnesium Total Bilirubin AST ALT Alkaline Phosphatase Total Creatine Kinase 51795 H Troponin I Total Protein Albumin Globulin Albumin/Globulin Ratio Urine Color Urine Clarity Urine pH Ur Specific [place] Urine Protein Urine Glucose (UA) Urine Ketones Urine Occult Blood Urine Nitrite Urine Bilirubin Urine Urobilinogen Ur Leukocyte Esterase Urine RBC Urine WBC Ur Squamous Epith Cells Ur Transition Epith Cell Ur Renal Epithelial Cell Urine Bacteria Urine Mucus Stl Giardia Antigen Cancelled COVID-19 (HERMILA) Hepatitis A IgM Ab Pending Hep Bs Antigen Pending Hep B Core IgM Ab Pending Hepatitis C Ab (EIA) Pending MRSA (PCR) 04/25/20 04/25/20 04/25/20 22:15 22:15 22:15 WBC RBC Hgb Hct MCV MCH MCHC RDW Std Deviation RDW Coeff of Stephenie Plt Count MPV Immature Gran % (Auto) Neut % (Auto) Lymph % (Auto) Rock % (Auto) Eos % (Auto) Baso % (Auto) Absolute Neuts (auto) Absolute Lymphs (auto) Nucleated RBC % Differential Comment Diff Path Review PT INR APTT Specimen Type Sample Site pH Bicarbonate Actual POC Total CO2 Base Excess O2 Saturation O2 % ABG pCO2 ABG pO2 Jb Test O2 Delivery Device EPAP IPAP Blood Gas Notified Whom Blood Gas Notified Time Sodium Potassium Chloride Carbon Dioxide Anion Gap BUN Creatinine Estim Creat Clear Calc Est GFR (MDRD) Af Amer Est GFR (MDRD) Non-Af BUN/Creatinine Ratio Glucose Lactic Acid Calcium Phosphorus Pending Magnesium Pending Total Bilirubin AST ALT Alkaline Phosphatase Total Creatine Kinase Troponin I 0.067 H Total Protein Albumin Globulin Albumin/Globulin Ratio Urine Color Urine Clarity Urine pH Ur Specific [place] Urine Protein Urine Glucose (UA) Urine Ketones Urine Occult Blood Urine Nitrite Urine Bilirubin Urine Urobilinogen Ur Leukocyte Esterase Urine RBC Urine WBC Ur Squamous Epith Cells Ur Transition Epith Cell Ur Renal Epithelial Cell Urine Bacteria Urine Mucus Stl Giardia Antigen Pending COVID-19 (HERMILA) Hepatitis A IgM Ab Hep Bs Antigen Hep B Core IgM Ab Hepatitis C Ab (EIA) MRSA (PCR) 04/25/20 04/25/20 04/26/20 22:30 22:30 01:15 WBC RBC Hgb Hct MCV MCH MCHC RDW Std Deviation RDW Coeff of Stephenie Plt Count MPV Immature Gran % (Auto) Neut % (Auto) Lymph % (Auto) Rock % (Auto) Eos % (Auto) Baso % (Auto) Absolute Neuts (auto) Absolute Lymphs (auto) Nucleated RBC % Differential Comment Diff Path Review PT INR APTT Specimen Type Sample Site pH Bicarbonate Actual POC Total CO2 Base Excess O2 Saturation O2 % ABG pCO2 ABG pO2 Jb Test O2 Delivery Device EPAP IPAP Blood Gas Notified Whom Blood Gas Notified Time Sodium Potassium Chloride Carbon Dioxide Anion Gap BUN Creatinine Estim Creat Clear Calc Est GFR (MDRD) Af Amer Est GFR (MDRD) Non-Af BUN/Creatinine Ratio Glucose Lactic Acid 2.2 H* Calcium Phosphorus Magnesium Total Bilirubin AST ALT Alkaline Phosphatase Total Creatine Kinase Troponin I 0.075 H Total Protein Albumin Globulin Albumin/Globulin Ratio Urine Color Urine Clarity Urine pH Ur Specific [place] Urine Protein Urine Glucose (UA) Urine Ketones Urine Occult Blood Urine Nitrite Urine Bilirubin Urine Urobilinogen Ur Leukocyte Esterase Urine RBC Urine WBC Ur Squamous Epith Cells Ur Transition Epith Cell Ur Renal Epithelial Cell Urine Bacteria Urine Mucus Stl Giardia Antigen COVID-19 (HERMILA) Hepatitis A IgM Ab Hep Bs Antigen Hep B Core IgM Ab Hepatitis C Ab (EIA) MRSA (PCR) Negative 06/20/20 06/20/20 06/20/20 04:20 04:20 04:20 WBC 13.6 H RBC 3.94 L Hgb 12.1 L Hct 38.1 L MCV 96.7 H MCH 30.7 MCHC 31.8 L RDW Std Deviation 52.7 H RDW Coeff of Stephenie 14.9 H Plt Count 183 MPV 10.8 Immature Gran % (Auto) 0.300 Neut % (Auto) 85.8 H Lymph % (Auto) 6.1 L Rock % (Auto) 7.5 Eos % (Auto) 0.1 Baso % (Auto) 0.2 Absolute Neuts (auto) 11.6 H Absolute Lymphs (auto) 0.83 Nucleated RBC % 0 Differential Comment SCANNED Diff Path Review PT INR APTT Specimen Type Sample Site pH Bicarbonate Actual POC Total CO2 Base Excess O2 Saturation O2 % ABG pCO2 ABG pO2 Jb Test O2 Delivery Device EPAP IPAP Blood Gas Notified Whom Blood Gas Notified Time Sodium 138 Potassium 6.3 H* Chloride 106 Carbon Dioxide 20.0 L Anion Gap 12 BUN 106 H* Creatinine 7.95 H* Estim Creat Clear Calc 10.85 Est GFR (MDRD) Af Amer 9 L Est GFR (MDRD) Non-Af 7 L BUN/Creatinine Ratio 13.3 Glucose 100 Lactic Acid Calcium 6.7 L Phosphorus Magnesium Total Bilirubin 0.70 AST 623 H ALT 160 H Alkaline Phosphatase 52 Total Creatine Kinase Troponin I 0.084 H Total Protein 5.8 L Albumin 2.3 L Globulin 3.5 Albumin/Globulin Ratio 0.7 L Urine Color Urine Clarity Urine pH Ur Specific [place] Urine Protein Urine Glucose (UA) Urine Ketones Urine Occult Blood Urine Nitrite Urine Bilirubin Urine Urobilinogen Ur Leukocyte Esterase Urine RBC Urine WBC Ur Squamous Epith Cells Ur Transition Epith Cell Ur Renal Epithelial Cell Urine Bacteria Urine Mucus Stl Giardia Antigen COVID-19 (HERMILA) Hepatitis A IgM Ab Hep Bs Antigen Hep B Core IgM Ab Hepatitis C Ab (EIA) MRSA (PCR) 04/26/20 04:20 WBC RBC Hgb Hct MCV MCH MCHC RDW Std Deviation RDW Coeff of Stephenie Plt Count MPV Immature Gran % (Auto) Neut % (Auto) Lymph % (Auto) Rock % (Auto) Eos % (Auto) Baso % (Auto) Absolute Neuts (auto) Absolute Lymphs (auto) Nucleated RBC % Differential Comment Diff Path Review PT 30.8 H INR 3.0 APTT Specimen Type Sample Site pH Bicarbonate Actual POC Total CO2 Base Excess O2 Saturation O2 % ABG pCO2 ABG pO2 Jb Test O2 Delivery Device EPAP IPAP Blood Gas Notified Whom Blood Gas Notified Time Sodium Potassium Chloride Carbon Dioxide Anion Gap BUN Creatinine Estim Creat Clear Calc Est GFR (MDRD) Af Amer Est GFR (MDRD) Non-Af BUN/Creatinine Ratio Glucose Lactic Acid Calcium Phosphorus Magnesium Total Bilirubin AST ALT Alkaline Phosphatase Total Creatine Kinase Troponin I Total Protein Albumin Globulin Albumin/Globulin Ratio Urine Color Urine Clarity Urine pH Ur Specific [place] Urine Protein Urine Glucose (UA) Urine Ketones Urine Occult Blood Urine Nitrite Urine Bilirubin Urine Urobilinogen Ur Leukocyte Esterase Urine RBC Urine WBC Ur Squamous Epith Cells Ur Transition Epith Cell Ur Renal Epithelial Cell Urine Bacteria Urine Mucus Stl Giardia Antigen COVID-19 (HERMILA) Hepatitis A IgM Ab Hep Bs Antigen Hep B Core IgM Ab Hepatitis C Ab (EIA) MRSA (PCR) Microbiology 04/25/20 22:15 Stool C. difficile DNA Amplification - Final 04/25/20 22:15 Stool Stool Lactoferrin - Final 04/25/20 18:55 Urine Catheter - Catheter Legionella Antigen - Final 04/25/20 18:55 Urine Catheter - Catheter Streptococcus pneumoniae Antigen (M - Final Clinical Impression(s) from Imaging Studies Brain CT 04/25/20 18:08 IMPRESSION: No acute intracranial process. Electronically Signed: Sisi Cardozo MD at 19:37 EDT Tel , Service support , Abdomen/Pelvis CT 04/25/20 18:18 IMPRESSION: Fluid throughout the colon and rectum, a nonspecific finding which may be secondary to proctocolitis. Consolidation within the lower lobes, more pronounced on the right. Atherosclerosis. Electronically Signed: Sisi Cardozo MD at 19:56 EDT Tel , Service support , Chest X-Ray 04/25/20 19:18 IMPRESSION: Right basilar atelectasis and/or pneumonia. Electronically Signed: Sisi Cardozo MD at 19:58 EDT Tel , Service support , Current Medications Acetaminophen (Tylenol) 650 mg PO Q6H PRN PRN PRN Reason: fever of >=100.7F Last Admin: 04/26/20 00:38 Dose: 650 mg Documented by: Albuterol Sulfate (Ventolin Aerosols) 2.5 mg INHALATION Q2H PRN PRN PRN Reason: SOB/Wheezing Dextrose (D50w Syringe) 0 gm IV X1 PRN; Protocol PRN Reason: Hypoglycemia Glucagon () 1 mg IM .X1 PRN PRN Reason: Hypoglycemia Heparin Sodium (Porcine) (Heparin Na) 5,000 unit SC Q8 COUNTS INCLUDE 234 BEDS AT THE [facility] Last Admin: 04/26/20 05:44 Dose: 5,000 unit Documented by: Sodium Chloride () 1,000 mls @ 100 mls/hr IV .Q10H COUNTS INCLUDE 234 BEDS AT THE [facility] Last Infusion: 04/26/20 05:44 Dose: 0 mls/hr Documented by: Cefepime HCl 2 gm/ Sodium (Chloride) 100 mls @ 200 mls/hr IV Q8 COUNTS INCLUDE 234 BEDS AT THE [facility] Last Admin: 04/26/20 05:44 Dose: 200 mls/hr Documented by: Vancomycin IV Pharmacy to Dose (1 ea/ Sodium Chloride) 500 mls @ 250 mls/hr IV X1 PRN; Protocol PRN Reason: Rx to Dose Sodium Chloride () 250 mls @ 15 mls/hr IV .[id number] PRN PRN Reason: Saline Flush Norepinephrine Bitartrate 8 mg (/ Sodium Chloride) 250 mls @ 9.375 mls/hr CONT INF .[id number] KARRIE; Protocol Last Titration: 04/26/20 05:45 Dose: 6 mcg/min, 11.3 mls/hr Documented by: Ondansetron HCl (Zofran) 4 mg IV Q8H PRN PRN PRN Reason: NAUSEA/VOMITING Sodium Chloride () 10 - 40 ml IV UD PRN PRN Reason: SALINE FLUSH Last Admin: 04/26/20 02:16 Dose: 10 ml Documented by: Vancomycin HCl () 250 mg PO Q6 KARRIE Last Admin: 04/26/20 04:59 Dose: Not Given Documented by: Assessment/Plan Active and Suspected Problems (Last Reviewed 04/26/20 @ 01:[address] Michel Saclido MD) Septic shock (Acute) RECOMMENDATIONS: 1. Discontinue p.o. vancomycin, given negative C. difficile. 2. Transition antimicrobials to IV vancomycin and Zosyn, while awaiting infectious work-up. 3. Obtain gallbladder ultrasound. 4. Continue Levophed to maintain a mean arterial pressure at or above 65 mmHg. 5. Medical management of hyperkalemia. 6. Await nephrology recommendations. 7. Start Pepcid for GI prophylaxis. Continue subcutaneous heparin. 8. Obtain ABG in [address] central and temporary HD line. 10. Trend CPK level. 11. Obtain echocardiogram. IMPRESSIONS: 1. Septic shock The patient presented to the hospital with septic shock, requiring vasopressor support, with multiple potential sources of infection, including community acquired pneumonia, UTI and possible cholecystitis. Plan to continue broad spectrum antimicrobials. The patient has been adequately volume resuscitated at this time. Accordingly, he will be continued on vasopressor support with a goal to maintain a mean arterial pressure at or above 65 mmHg. Triple-lumen and arterial lines have been placed by surgery. Infectious work-up is pending. Gallbladder ultrasound is pending. 2. Acute hypoxemic respiratory failure Appears to be secondary to a right lower lobe consolidation. Although the patient was placed on noninvasive positive pressure ventilatory support, he remained quite lethargic with impending respiratory failure. Therefore, the decision was made to intubate the patient, following discussion with the patient's . As noted above, the patient is on appropriate antimicrobials. Plan to obtain arterial blood gas 1 hour after intubation. Wean FiO2 to maintain saturations at or above 90%. 3. Acute liver injury/coagulopathy Likely a component of shock liver in the setting #1. The patient is apparently on Eliquis as an outpatient. All forms of systemic anticoagulation are on hold. Continue to monitor liver function for now. Anticipate improvement with stabilization of hemodynamics. 4. Acute kidney injury/hyperkalemia Likely prerenal in etiology and related to ATN in the setting of #1. Nephrology is currently following. Plan to have temporary dialysis catheter placed and proceed with dialysis support today. 5. Metabolic encephalopathy Secondary to underlying infectious processes. Continue current supportive measures as noted above. 6. Troponin elevation Likely due to demand ischemia in the setting of #1. Continue to trend troponins. Echocardiogram is pending. 7. History of tobacco dependency in remission/hypertension/chronic anticoagulation status/hyperlipidemia/unclear cardiac history/CODE STATUS Complicates care, management, recovery and prognosis. The patient does appear to be on Eliquis as an outpatient per his [place] [facility] medical record list. In addition, he is on a number of different cardiac medications including Lasix. His prior cardiac history is unknown. I did speak with the patient's who confirmed his CODE STATUS to be full and proceed with intubation, if clinically needed. TIME: 82 minutes of critical care time, inclusive of procedures, was spent addressing the patient's septic shock, acute respiratory failure, acute liver injury, acute kidney injury, metabolic encephalopathy, troponin elevation, code status discussion, review of all data and collaboration with the care team. ([id number], [id number]) Procedures: 50935 Critial Care Addl 30 Min 9xxxx: [id number] Critical care first hour
--- NOTE | 2020-04-26 06:04 | ECHOCS_ITS ---
Reason For Study: DYSPNEA/SOB Procedure This was a 2D Doppler, Color Flow transthoracic echocardiogram. The study was technically difficult. EXAM PERFORMED SUPINE. PT ON VENT. Contrast injection was performed. Exam performed portable in ICU/CCU. Left Ventricle Normal LV size. Mild concentric left ventricular hypertrophy. Left ventricular systolic function is normal. The estimated ejection fraction is 60 %. No regional wall motion abnormalities noted. Right Ventricle Normal right ventricle. Normal systolic function. Atria Normal left atrium. Normal right atrium. Mitral Valve The mitral valve is structurally normal. No prolapse or stenosis seen. Tricuspid Valve The peak TR velocity is 21 cm/s. Pulmonary artery systolic pressure is 36 mmHg. Mild to moderate (1- 2+) tricuspid valve insufficiency. Aortic Valve Normal aortic valve. Pulmonic Valve The pulmonic valve is not well visualized. Medication Diluted definity 4.0ml given slow IV push to enhance endocardial definition. MMode/2D Measurements & Calculations LVIDd: 4.7 cm IVSd: 1.2 cm Ao root diam: 3.8 cm LVIDs: 2.8 cm LVPWd: 1.2 cm RVDd: 3.0 cm FS: 39.9 % LAV(MOD-bp): 56.8 ml LA A4 area: 17.6 cm2 LA dimension(2D): 4.3 cm LAV(MOD-bp) Indexed: 25.6 ml/m2 LAV(MOD-sp2): 65.4 ml LAV(MOD-sp4): 49.4 ml RA A4 area: 14.2 cm2 Doppler Measurements & Calculations MV E max lulu: 101.0 cm/sec PA V2 max: 85.9 cm/sec MV A max lulu: 29.6 cm/sec MV E/A: 3.4 Interpretation Summary Left ventricular systolic function is normal. The estimated ejection fraction is 60 %. Mild to moderate (1-2+) tricuspid valve insufficiency. Normal right ventricle. Normal systolic function. Pulmonary artery systolic pressure is 36 mmHg. Ordering Physician: Michel Salcido Referring Physician: [facility] Performed By: Lizette Proctor, JOSELINE, RVT
--- NOTE | 2020-04-26 06:05 | EKG12_ITS ---
Test Reason : UNRESPONSIVE Blood Pressure : / mmHG Vent. Rate : 084 BPM Atrial Rate : 084 BPM P-R Int : 218 ms QRS Dur : 154 ms QT Int : 438 ms P-R-T Axes : 073 -65 015 degrees QTc Int : 517 ms Sinus rhythm with 1st degree A-V block Right bundle branch block Left anterior fascicular block Bifascicular block Abnormal ECG Confirmed by MIKE HIRSCH, RAMÓN ([id number]), editor greeting card KIKI MIRAMONTES ([id number]) on 04/29/2020 10:46:47 AM Referred By: DC Confirmed By:RAMÓN MCKEON MD
[2020-04-26 06:40] LABS: Magnesium 2.8 mg/dL (1.6-2.6); Phosphorus 6.4 mg/dL (2.5-4.9)
[2020-04-26] MEDS: Dextrose 50%-Water 25 GM/50 ML DISP.SYRIN IV (06:45)
--- NOTE | 2020-04-26 06:51 | PCM.PN.HOSP ---
Patient Problems: Active and Suspected Problems (Last Reviewed 04/26/20 @ 01:[address] Michel Salcido MD) Septic shock (Acute) Severe sepsis (Acute) Pneumonia (Acute) Proctocolitis (Acute) Vitals/I&O's: Vital Signs Temp Pulse Resp BP Pulse Ox 101.6 F H 93 25 H 97/65 96 04/26/20 04:44 04/26/20 06:00 04/26/20 06:00 04/26/20 06:00 04/26/20 06:00 Oxygen Delivery Method Bi-pap Weight: 220 lb 3.869 oz Body Mass Index (BMI) 29.7 Finger Stick Blood Glucose 122 Intake and Output for Last 24 Hours 04/24/20 04/25/20 04/26/20 23:59 23:59 23:59 Intake Total 3680 / 3740 812.48 / 812.48 Output Total 110 / 110 Balance 3680 / 3690 702.48 / 702.48 Microbiology Past 72 Hours 04/25/20 22:15 Stool C. difficile DNA Amplification - Final 04/25/20 22:15 Stool Stool Lactoferrin - Final 04/25/20 18:55 Urine Catheter - Catheter Legionella Antigen - Final 04/25/20 18:55 Urine Catheter - Catheter Streptococcus pneumoniae Antigen (M - Final Laboratory Results 04/25/20 18:10: WBC 19.1 H, RBC 4.48 L, Hgb 13.8, Hct 42.0, MCV 93.8, MCH 30.8, MCHC 32.9, RDW Std Deviation 50.0 H, RDW Coeff of Stephenie 14.6, Plt Count 222, MPV 10.6, Immature Gran % (Auto) 0.800, Neut % (Auto) 80.2 H, Lymph % (Auto) 6.8 L, [place] % (Auto) 10.9 H, Eos % (Auto) 1.1, Baso % (Auto) 0.2, Absolute Neuts (auto) 15.3 H, Absolute Lymphs (auto) 1.29, Nucleated RBC % 0, Differential Comment , Diff Path Review March04/25/20 18:10: PT 31.9 H, INR 3.1, APTT 39.0 H 04/25/20 18:10: Sodium 136, Potassium 5.4 H, Chloride 102, Carbon Dioxide 23.0, Anion Gap 11, BUN 94 H, Creatinine 7.60 H*, Estim Creat Clear Calc 11.01, Est GFR (MDRD) Af Amer 9 L, Est GFR (MDRD) Non-Af 8 L, BUN/Creatinine Ratio 12.4, Glucose 99, Calcium 7.7 L, Total Bilirubin 0.80, AST 646 H, ALT 180 H, Alkaline Phosphatase 58, Troponin I 0.074 H, Total Protein 6.5, Albumin 2.7 L, Globulin 3.8, Albumin/Globulin Ratio 0.7 L 04/25/20 18:10: Lactic Acid 2.0 04/25/20 18:20: COVID-19 (HERMILA) Not Detected 04/25/20 18:55: Urine Color Bernadette, Urine Clarity Cloudy, Urine pH 5.0, Ur Specific [place] 1.025, Urine Protein 100 H, Urine Glucose (UA) 50 H, Urine Ketones 5 H, Urine Occult Blood 250 H, Urine Nitrite Positive H, Urine Bilirubin 3 H, Urine Urobilinogen 4 H, Ur Leukocyte Esterase 25 H, Urine RBC 0 SEEN, Urine WBC 0-5 SEEN, Ur Squamous Epith Cells 0-5 SEEN, Ur Transition Epith Cell 0-5 SEEN, Ur Renal Epithelial Cell 0 SEEN, Urine Bacteria 0 SEEN, Urine Mucus 1+ 04/25/20 20:05: Specimen Type ART, Sample Site R RADIAL, pH 7.29 L, Bicarbonate Actual 16.4 L, POC Total CO2 17, Base Excess Pending, O2 Saturation 97, O2 % 80, ABG pCO2 33.4 L, ABG pO2 104 H, Jb Test NA, O2 Delivery Device Bi Pap, EPAP 10, IPAP 20, Blood Gas Notified Whom JUSTICE HIRSCH, Blood Gas Notified Time 200404/25/20 22:15: Stl Giardia Antigen Cancelled, Hepatitis A IgM Ab Pending, Hep Bs Antigen Pending, Hep B Core IgM Ab Pending, Hepatitis C Ab (EIA) Pending 04/25/20 22:15: Total Creatine Kinase 50154 H 04/25/20 22:15: Phosphorus 6.4 H, Magnesium 2.8 H 04/25/20 22:15: Stl Giardia Antigen Pending 04/25/20 22:15: Troponin I 0.067 H 04/25/20 22:30: Lactic Acid 2.2 H* 04/25/20 22:30: MRSA (PCR) Negative 04/26/20 01:15: Troponin I 0.075 H 04/26/20 04:20: WBC 13.6 H, RBC 3.94 L, Hgb 12.1 L, Hct 38.1 L, MCV 96.7 H, MCH 30.7, MCHC 31.8 L, RDW Std Deviation 52.7 H, RDW Coeff of Stephenie 14.9 H, Plt Count 183, MPV 10.8, Immature Gran % (Auto) 0.300, Neut % (Auto) 85.8 H, Lymph % (Auto) 6.1 L, [place] % (Auto) 7.5, Eos % (Auto) 0.1, Baso % (Auto) 0.2, Absolute Neuts (auto) 11.6 H, Absolute Lymphs (auto) 0.83, Nucleated RBC % 0, Differential Comment SCANNED 04/26/20 04:20: Troponin I 0.084 H 04/26/20 04:20: Sodium 138, Potassium 6.3 H*, Chloride 106, Carbon Dioxide 20.0 L, Anion Gap 12, BUN 106 H*, Creatinine 7.95 H*, Estim Creat Clear Calc 10.85, Est GFR (MDRD) Af Amer 9 L, Est GFR (MDRD) Non-Af 7 L, BUN/Creatinine Ratio 13.3, Glucose 100, Calcium 6.7 L, Total Bilirubin 0.70, AST 623 H, ALT 160 H, Alkaline Phosphatase 52, Total Protein 5.8 L, Albumin 2.3 L, Globulin 3.5, Albumin/Globulin Ratio 0.7 L 04/26/20 04:20: PT 30.8 H, INR 3.0 Current Medications Acetaminophen (Tylenol) 650 mg PO Q6H PRN PRN PRN Reason: fever of >=100.7F Last Admin: 04/26/20 00:38 Dose: 650 mg Documented by: Albuterol Sulfate (Ventolin Aerosols) 2.5 mg INHALATION Q2H PRN PRN PRN Reason: SOB/Wheezing Dextrose (D50w Syringe) 0 gm IV X1 PRN; Protocol PRN Reason: Hypoglycemia Glucagon () 1 mg IM .X1 PRN PRN Reason: Hypoglycemia Heparin Sodium (Porcine) (Heparin Na) 5,000 unit SC Q8 [facility] Last Admin: 04/26/20 05:44 Dose: 5,000 unit Documented by: Sodium Chloride () 1,000 mls @ 100 mls/hr IV .Q10H [facility] Last Infusion: 04/26/20 06:14 Dose: 100 mls/hr Documented by: Cefepime HCl 2 gm/ Sodium (Chloride) 100 mls @ 200 mls/hr IV Q8 [facility] Last Infusion: 04/26/20 06:14 Dose: Infused Documented by: Vancomycin IV Pharmacy to Dose (1 ea/ Sodium Chloride) 500 mls @ 250 mls/hr IV X1 PRN; Protocol PRN Reason: Rx to Dose Sodium Chloride () 250 mls @ 15 mls/hr IV .[id number] PRN PRN Reason: Saline Flush Norepinephrine Bitartrate 8 mg (/ Sodium Chloride) 250 mls @ 9.375 mls/hr CONT INF .[id number] [facility]; Protocol Last Titration: 04/26/20 06:00 Dose: 6 mcg/min, 11.3 mls/hr Documented by: Calcium Gluconate 1 gm/ N/A 10 mls @ 0 mls/hr IV X1 [facility] Last Admin: 04/26/20 06:42 Dose: 10 mls/hr Documented by: Ondansetron HCl (Zofran) 4 mg IV Q8H PRN PRN PRN Reason: NAUSEA/VOMITING Sodium Chloride () 10 - 40 ml IV UD PRN PRN Reason: SALINE FLUSH Last Admin: 04/26/20 02:16 Dose: 10 ml Documented by: Vancomycin HCl () 250 mg PO Q6 [facility] Last Admin: 04/26/20 04:59 Dose: Not Given Documented by: STROKE Vital Signs/Narrative: Vital Signs Temp Pulse Resp BP BP Pulse Ox 04/26/20 06:00 93 25 H 97/65 96 04/26/20 05:45 87 100/64 04/26/20 05:30 85 20 H 90/61 96 04/26/20 05:15 80 18 91/59 L 93 04/26/20 05:00 79 20 H 100/56 L 98 04/26/20 04:50 78 84/56 L 04/26/20 04:44 101.6 F H 82 16 94/52 L 95 06/20/20 04:15 71 20 H 96 04/26/20 04:00 101.6 F H 79 20 H 73/44 L 92 04/26/20 03:58 79 04/26/20 03:30 79 18 84/64 L 97 04/26/20 03:00 78 20 H 85/55 L 95 Medical Necessity - Tobacco Use Smoking Status: Former smoker Assessment/Plan All Active Problems (Last Reviewed 04/26/20 @ 01:[address] Michel Salcido MD) Septic shock (Acute) Severe sepsis (Acute) Pneumonia (Acute) Proctocolitis (Acute)
[2020-04-26] MEDS: Insulin Lispro 10 UNIT in Syringe 0 ML 6 UNIT IV (06:54)
--- NOTE | 2020-04-26 07:06 | NURSING ---
Holding all PO meds at this time due to pt's lethargy. Pt awakens for short periods, and is lucid but readily falls back to sleep. More lethargic this morning than he was upon admission.
--- NOTE | 2020-04-26 08:04 | CON.PCM_ITS ---
Consultation - Renal 04/26/20 PCP/ Referring MD: Requesting physician: Dr. Jovany Martinez Primary care physician: [facility] Reason for Consultation:: VON, hyperkalemia - History of Present Illness History of Present Illness: The patient is a 59 year old M with past medical history of HTN, atrial fibrillation, and hyperlipidemia presented with 5 days of malaise. History is obtained from since pt is obtunded and is on BiPAP. He also developed nausea, vomiting and diarrhea 3 days prior to admission. The pt was found to have SCr of 7.60 mg/dL on presentation. His UOP had also decreased over the last 3 days per . He was on lsinopril, furosemide and KCl prior to admission. The pt was found to also have CK of >20K as well as RLL infiltrate. There is no prior history of CKD per . No prior labs on our system for comparison. - Allergies Allergies: Allergies No Known Allergies Allergy (Verified 04/25/20 18:11) - Current Medications Current Medications: Current Medications Albuterol Sulfate (Ventolin Aerosols) 2.5 mg INHALATION Q2H PRN PRN PRN Reason: SOB/Wheezing Aspirin (Aspirin) 300 mg RECTAL DAILY [facility] Dextrose (D50w Syringe) 0 gm IV X1 PRN; Protocol PRN Reason: Hypoglycemia Glucagon () 1 mg IM .X1 PRN PRN Reason: Hypoglycemia Heparin Sodium (Porcine) (Heparin Na) 5,000 unit SC Q8 [facility] Last Admin: 04/26/20 05:44 Dose: 5,000 unit Documented by: Sodium Chloride () 1,000 mls @ 150 mls/hr IV .[id number] [facility] Last Infusion: 04/26/20 06:14 Dose: 100 mls/hr Documented by: Sodium Chloride () 250 mls @ 15 mls/hr IV .[id number] PRN PRN Reason: Saline Flush Norepinephrine Bitartrate 8 mg (/ Sodium Chloride) 250 mls @ 9.375 mls/hr CONT INF .[id number] [facility]; Protocol Last Titration: 04/26/20 07:14 Dose: 8 mcg/min, 15 mls/hr Documented by: Calcium Gluconate 1 gm/ N/A 10 mls @ 0 mls/hr IV X1 [facility] Last Admin: 04/26/20 06:42 Dose: 10 mls/hr Documented by: Vancomycin IV Pharmacy to Dose (1 ea/ Sodium Chloride) 500 mls @ 250 mls/hr IV X1 PRN; Protocol PRN Reason: Rx to Dose Piperacillin Sod/Tazobactam (Sod 3.375 gm/ Sodium Chloride) 50 mls @ 12.5 mls/hr IV Q8 [facility] Famotidine 20 mg/ Sodium (Chloride) 10 mls @ 300 mls/hr IV Q12 [facility] Ondansetron HCl (Zofran) 4 mg IV Q8H PRN PRN PRN Reason: NAUSEA/VOMITING Sodium Chloride () 10 - 40 ml IV UD PRN PRN Reason: SALINE FLUSH Last Admin: 04/26/20 02:16 Dose: 10 ml Documented by: - Past Surgical History Surgical History: tonsillectomy, - - Temporal artery biopsy - Social History Smoking Status: Former smoker Alcohol: None - Family History Maternal History Items: - - Patient was adopted and does not know maternal medical history. Paternal History Items: - - Patient was adopted and does not know paternal medical history. Patient Problems: Active and Suspected Problems (Last Reviewed 04/26/20 @ 01:[address] Michel Salcido MD) Septic shock (Acute) Severe sepsis (Acute) Pneumonia (Acute) Proctocolitis (Acute) - Physical Exam Vitals/I&O's: Vital Signs Temp Pulse Resp BP Pulse Ox 101.6 F H 88 20 H 79/45 L 92 04/26/20 04:44 04/26/20 07:14 04/26/20 07:14 04/26/20 07:14 04/26/20 07:14 Oxygen Delivery Method Bi-pap Weight: 99.9 kg Body Mass Index (BMI) 29.7 Finger Stick Blood Glucose 122 Intake and Output for Last 24 Hours 04/24/20 04/25/20 04/26/20 23:59 23:59 23:59 Intake Total 3680 / 3740 826.85 / 826.85 Output Total 110 / 110 Balance 3680 / 3690 716.85 / 716.85 General: Lethargic HEENT: Atraumatic, PERRLA, Normocephalic Oral: Dry Mucosa Neck: Supple Lungs: Diminished - air excahnge BL Cardiovascular: Normal S1, Normal S2, No murmurs, No rub noted Abdomen: Bowel Sounds Present, Soft, Rebound Tenderness, Tender Extremities: No clubbing, No cyanosis, No edema Skin: No rashes Musculoskeletal: No Tenderness to Palpation of Joints or Extremities Lymphatic: No Cervical, Supraclavicular, or Inguinal Adenopathy Neurological: Clonus Microbiology Past 72 Hours 04/25/20 22:15 Stool C. difficile DNA Amplification - Final 04/25/20 22:15 Stool Stool Lactoferrin - Final 04/25/20 18:55 Urine Catheter - Catheter Legionella Antigen - Final 04/25/20 18:55 Urine Catheter - Catheter Streptococcus pneumoniae Antigen (M - Final Laboratory Results 04/25/20 18:10: WBC 19.1 H, RBC 4.48 L, Hgb 13.8, Hct 42.0, MCV 93.8, MCH 30.8, MCHC 32.9, RDW Std Deviation 50.0 H, RDW Coeff of Stephenie 14.6, Plt Count 222, MPV 10.6, Immature Gran % (Auto) 0.800, Neut % (Auto) 80.2 H, Lymph % (Auto) 6.8 L, [place] % (Auto) 10.9 H, Eos % (Auto) 1.1, Baso % (Auto) 0.2, Absolute Neuts (auto) 15.3 H, Absolute Lymphs (auto) 1.29, Nucleated RBC % 0, Differential Comment , Diff Path Review March04/25/20 18:10: PT 31.9 H, INR 3.1, APTT 39.0 H 04/25/20 18:10: Sodium 136, Potassium 5.4 H, Chloride 102, Carbon Dioxide 23.0, Anion Gap 11, BUN 94 H, Creatinine 7.60 H*, Estim Creat Clear Calc 11.01, Est GFR (MDRD) Af Amer 9 L, Est GFR (MDRD) Non-Af 8 L, BUN/Creatinine Ratio 12.4, Glucose 99, Calcium 7.7 L, Total Bilirubin 0.80, AST 646 H, ALT 180 H, Alkaline Phosphatase 58, Troponin I 0.074 H, Total Protein 6.5, Albumin 2.7 L, Globulin 3.8, Albumin/Globulin Ratio 0.7 L 04/25/20 18:10: Lactic Acid 2.0 04/25/20 18:20: COVID-19 (HERMILA) Not Detected 04/25/20 18:55: Urine Color Bernadette, Urine Clarity Cloudy, Urine pH 5.0, Ur Specific [place] 1.025, Urine Protein 100 H, Urine Glucose (UA) 50 H, Urine Ketones 5 H, Urine Occult Blood 250 H, Urine Nitrite Positive H, Urine Bilirubin 3 H, Urine Urobilinogen 4 H, Ur Leukocyte Esterase 25 H, Urine RBC 0 SEEN, Urine WBC 0-5 SEEN, Ur Squamous Epith Cells 0-5 SEEN, Ur Transition Epith Cell 0-5 SEEN, Ur Renal Epithelial Cell 0 SEEN, Urine Bacteria 0 SEEN, Urine Mucus 1+ 04/25/20 20:05: Specimen Type ART, Sample Site R RADIAL, pH 7.29 L, Bicarbonate Actual 16.4 L, POC Total CO2 17, Base Excess Pending, O2 Saturation 97, O2 % 80, ABG pCO2 33.4 L, ABG pO2 104 H, Jb Test NA, O2 Delivery Device Bi Pap, EPAP 10, IPAP 20, Blood Gas Notified Whom ED , Blood Gas Notified Time 200404/25/20 22:15: Stl Giardia Antigen Cancelled, Hepatitis A IgM Ab Pending, Hep Bs Antigen Pending, Hep B Core IgM Ab Pending, Hepatitis C Ab (EIA) Pending 04/25/20 22:15: Total Creatine Kinase 54966 H 04/25/20 22:15: Phosphorus 6.4 H, Magnesium 2.8 H 04/25/20 22:15: Stl Giardia Antigen Pending 04/25/20 22:15: Troponin I 0.067 H 04/25/20 22:30: Lactic Acid 2.2 H* 04/25/20 22:30: MRSA (PCR) Negative 04/26/20 01:15: Troponin I 0.075 H 04/26/20 04:20: WBC 13.6 H, RBC 3.94 L, Hgb 12.1 L, Hct 38.1 L, MCV 96.7 H, MCH 30.7, MCHC 31.8 L, RDW Std Deviation 52.7 H, RDW Coeff of Stephenie 14.9 H, Plt Count 183, MPV 10.8, Immature Gran % (Auto) 0.300, Neut % (Auto) 85.8 H, Lymph % (Auto) 6.1 L, [place] % (Auto) 7.5, Eos % (Auto) 0.1, Baso % (Auto) 0.2, Absolute Neuts (auto) 11.6 H, Absolute Lymphs (auto) 0.83, Nucleated RBC % 0, Differential Comment SCANNED 04/26/20 04:20: Troponin I 0.084 H 04/26/20 04:20: Sodium 138, Potassium 6.3 H*, Chloride 106, Carbon Dioxide 20.0 L, Anion Gap 12, BUN 106 H*, Creatinine 7.95 H*, Estim Creat Clear Calc 10.85, Est GFR (MDRD) Af Amer 9 L, Est GFR (MDRD) Non-Af 7 L, BUN/Creatinine Ratio 13.3, Glucose 100, Calcium 6.7 L, Total Bilirubin 0.70, AST 623 H, ALT 160 H, Alkaline Phosphatase 52, Total Protein 5.8 L, Albumin 2.3 L, Globulin 3.5, Albumin/Globulin Ratio 0.7 L 04/26/20 04:20: PT 30.8 H, INR 3.0 Current Medications Albuterol Sulfate (Ventolin Aerosols) 2.5 mg INHALATION Q2H PRN PRN PRN Reason: SOB/Wheezing Aspirin (Aspirin) 300 mg RECTAL DAILY [facility] Dextrose (D50w Syringe) 0 gm IV X1 PRN; Protocol PRN Reason: Hypoglycemia Glucagon () 1 mg IM .X1 PRN PRN Reason: Hypoglycemia Heparin Sodium (Porcine) (Heparin Na) 5,000 unit SC Q8 [facility] Last Admin: 04/26/20 05:44 Dose: 5,000 unit Documented by: Sodium Chloride () 1,000 mls @ 150 mls/hr IV .[id number] [facility] Last Infusion: 04/26/20 06:14 Dose: 100 mls/hr Documented by: Sodium Chloride () 250 mls @ 15 mls/hr IV .[id number] PRN PRN Reason: Saline Flush Norepinephrine Bitartrate 8 mg (/ Sodium Chloride) 250 mls @ 9.375 mls/hr CONT INF .[id number] [facility]; Protocol Last Titration: 04/26/20 07:14 Dose: 8 mcg/min, 15 mls/hr Documented by: Calcium Gluconate 1 gm/ N/A 10 mls @ 0 mls/hr IV X1 [facility] Last Admin: 04/26/20 06:42 Dose: 10 mls/hr Documented by: Vancomycin IV Pharmacy to Dose (1 ea/ Sodium Chloride) 500 mls @ 250 mls/hr IV X1 PRN; Protocol PRN Reason: Rx to Dose Piperacillin Sod/Tazobactam (Sod 3.375 gm/ Sodium Chloride) 50 mls @ 12.5 mls/hr IV Q8 [facility] Famotidine 20 mg/ Sodium (Chloride) 10 mls @ 300 mls/hr IV Q12 [facility] Ondansetron HCl (Zofran) 4 mg IV Q8H PRN PRN PRN Reason: NAUSEA/VOMITING Sodium Chloride () 10 - 40 ml IV UD PRN PRN Reason: SALINE FLUSH Last Admin: 04/26/20 02:16 Dose: 10 ml Documented by: Assessment/Plan All Active Problems (Last Reviewed 04/26/20 @ 01:[address] Michel Salcido MD) Septic shock (Acute) Severe sepsis (Acute) Pneumonia (Acute) Proctocolitis (Acute) 1. Acute kidney injury. Baseline renal function is unknown. Presumed normal. VON is likely due to ischemic ATN given his presentation. UA did not reveal RBC or significant proteinuria to suggest acute GN. No hydronephrosis on CT of A/P to suggest obstruction. Renal function has worsened despite IVF. More importantly, his K has increased as well. With ongoing requirement for pressor, I do not expect his renal function to improve today. Therefore, I will proceed with dialysis. Risks and benefits of dialysis was discussed with his . 2. Hyperkalemia. secondary to VON. The pt was also on ACEI and KCl prior to admit. Will dialyze today. Recheck K in am. 3. Metabolic acidosis. Secondary to sepsis/decreased EBV and VON. Will dialyze. Follow serum HCO3 and lactic acid level. 4. Septic shock. Source of infection to be determined. Suspect gall bladder infection. Surgery to see pt. Also has RLL infiltrate. On empiric antibiotics. On pressor.
--- NOTE | 2020-04-26 08:04 | US_ITS ---
STUDY: ABDOMINAL ULTRASOUND - RIGHT UPPER QUADRANT REASON FOR VISIT: Male, 59 years old septic shock TECHNIQUE: Ultrasound evaluation of the right upper quadrant was performed with real-time and static hurley-scale imaging. TECHNICAL QUALITY: Limited. Examination limited due to the patient?s condition and bowel gas. COMPARISON: None. FINDINGS: Liver: The liver measures 14 cm. There is normal echogenicity of the liver. The bile ducts are within normal limits. There is hepatic color flow. The direction of portal flow is hepatopetal. There is no demonstrated mass lesion. Gallbladder: Normal distended gallbladder. The gallbladder wall measures 2.9 mm. Velazquez sign not evaluated due to patient''s being unconscious. There is no pericholecystic fluid. There is question of layering echogenic sludge within the gallbladder lumen. Common Bile Duct (C.B.D.): The common bile duct measures 4 mm. Pancreas: Pancreatic head is partially viewed with limited view of the body and tail due to overlying bowel gas. There is normal echogenicity of the pancreas. There is no demonstrated pancreatic mass or cyst. Right Kidney: Normal size of the right kidney. The right kidney measures 11.5 x 5.1 x 6.9 cm. Normal renal cortex. The right cortex measures 2.0 cm. There is no demonstrated renal mass or cyst. There is no right hydronephrosis. US/Abdomen Limited IMPRESSION: 1. Percent of layering sludge with no definitive gallstone, pericholecystic fluid or wall thickening. Velazquez''s sign limited due to patient being unconscious. Electronically Signed: Valdo Meek DO at 11:05 EDT , Service support ,
--- NOTE | 2020-04-26 08:48 | NURSING ---
0845 present in pt room. prep to place LIJ TL 0850 HR 97 R 18 BP 93/56 SpO2 96 AFib, denies pain when awake, RASS -1 0855 HR 89 R 19 BP 82/47 SpO2 96 AFib, LIJ TL placed 0900 HR 85 R 17 BP 87/56 SpO2 95 move to Right for Temp dialysis cath 0905 HR 89 R 18 BP 88/47 SpO2 [address] 0910 HR 82 R 19 BP 80/56 SpO2 95 0915 HR 90 R 17 BP 96/53 SpO2 96 prep for víctor, Dr. Churchill and Jovany present 0920 HR 93 R 16 BP SpO2 víctor L radial in place, prep for intubation 0928 4mg Versed, 20mg Etomidate IV push. Dr Manzo begin intubation 0925 HR 100 R 18 BP 120/61 SpO2 92 0929 22cm at lip #8 OET, good color change. 0930 HR 104 R 19 BP 86/46 SpO2 94 bag 100% [address], xray here. hep instilled TDC per Dr. Churchill
--- NOTE | 2020-04-26 09:19 | CASEMGMT ---
Addendum entered by Tana Joaquin 04/26/20 10:43: No call back from [facility] transfer center yet at this time and per Dr. Joyce, pt needs transferred to tertiary facility for higher level of care. Call back to [facility] transfer center and per Bertha/Amarilis, they have no ICU beds available at the [facility] at this time. Dr. Joyce aware and is facilitating transfer to [facility] at this time. Rjoelio GUSTAFSON CM Original Note: Per Howard in ICU, pt is getting intubated, needs temp dialysis cath, and needs transferred. According to registration info, pt only has [facility] at this time. All current clinicals faxed to [facility] transfer [facility] and call to [facility] to notify of pt at this time. She states she will put call out once to applications trainer physician and check beds once clinicals obtained. Dr. Joyce update on all, voices understanding. Rojelio GUSTAFSON CM
[2020-04-26] MEDS: Midazolam 2 MG/2 ML Syringe 4 MG IV (09:28)
[2020-04-26] MEDS: Etomidate 20 MG/10 ML Vial IV (09:28)
--- NOTE | 2020-04-26 09:29 | PCM.CONS.GEN ---
Problem List (1) Septic shock Status: Acute (2) Severe sepsis Status: Acute Reason for Consult Date of Consultation: 04/26/20 Reason for Consultation: Sepsis need for vascular access History of Present Illness: The patient is a 59 year old M in the ICU with sepsis. I was consulted for vascular access as the patient needs dialysis catheter and central line. Upon investigating I discussed with the and he has been having right sided abdominal pain for the last 3 to 4 days with nausea and vomiting. Past Medical History Medical History: Medical History (Last Reviewed 04/26/20 @ 01:[address] Michel Salcido MD) Emphysema of lung J43.9 Paroxysmal A-fib I48.0 Allergies No Known Allergies Allergy (Verified 04/25/20 18:11) Home Medications: Ambulatory Orders Medication Instructions Recorded Unobtainable 04/25/20 Surgical History: tonsillectomy, - - Temporal artery biopsy Lives: Spouse/ Significant Other Smoking Status: Former smoker Alcohol: None - *Family History Maternal History Items: - - Patient was adopted and does not know maternal medical history. Paternal History Items: - - Patient was adopted and does not know paternal medical history. Review of Systems Unable to obtain accurate/complete ROS d/t: Patient confused and obtunded Patient Problems: Active and Suspected Problems (Last Reviewed 04/26/20 @ 01:[address] Michel Salcido MD) Septic shock (Acute) Severe sepsis (Acute) Pneumonia (Acute) Proctocolitis (Acute) - Physical Exam Vitals/I&O's: Vital Signs Temp Pulse Resp BP Pulse Ox 101.6 F H 81 23 H 79/45 L 92 04/26/20 04:44 04/26/20 07:45 04/26/20 07:45 04/26/20 07:14 04/26/20 07:45 Oxygen Delivery Method Bi-pap Weight: 220 lb 3.869 oz Body Mass Index (BMI) 29.7 Finger Stick Blood Glucose 122 Intake and Output for Last 24 Hours 04/24/20 04/25/20 04/26/20 23:59 23:59 23:59 Intake Total 3680 / 3740 826.85 / 826.85 Output Total 110 / 110 Balance 3680 / 3690 716.85 / 716.85 General: Disoriented HEENT: Atraumatic Neck: No JVD Lungs: Diminished Cardiovascular: Regular rate, Regular Rhythm Abdomen: Soft, Non-Distended, Tender - Tender in the right upper quadrant Extremities: No clubbing Skin: Ulcer/ Wound Musculoskeletal: No Muscle Wasting Microbiology Past 72 Hours 04/25/20 22:15 Stool C. difficile DNA Amplification - Final 04/25/20 22:15 Stool Stool Lactoferrin - Final 04/25/20 18:55 Urine Catheter - Catheter Legionella Antigen - Final 04/25/20 18:55 Urine Catheter - Catheter Streptococcus pneumoniae Antigen (M - Final Laboratory Results 04/25/20 18:10: WBC 19.1 H, RBC 4.48 L, Hgb 13.8, Hct 42.0, MCV 93.8, MCH 30.8, MCHC 32.9, RDW Std Deviation 50.0 H, RDW Coeff of Stephenie 14.6, Plt Count 222, MPV 10.6, Immature Gran % (Auto) 0.800, Neut % (Auto) 80.2 H, Lymph % (Auto) 6.8 L, Letcher % (Auto) 10.9 H, Eos % (Auto) 1.1, Baso % (Auto) 0.2, Absolute Neuts (auto) 15.3 H, Absolute Lymphs (auto) 1.29, Nucleated RBC % 0, Differential Comment , Diff Path Review March04/25/20 18:10: PT 31.9 H, INR 3.1, APTT 39.0 H 04/25/20 18:10: Sodium 136, Potassium 5.4 H, Chloride 102, Carbon Dioxide 23.0, Anion Gap 11, BUN 94 H, Creatinine 7.60 H*, Estim Creat Clear Calc 11.01, Est GFR (MDRD) Af Amer 9 L, Est GFR (MDRD) Non-Af 8 L, BUN/Creatinine Ratio 12.4, Glucose 99, Calcium 7.7 L, Total Bilirubin 0.80, AST 646 H, ALT 180 H, Alkaline Phosphatase 58, Troponin I 0.074 H, Total Protein 6.5, Albumin 2.7 L, Globulin 3.8, Albumin/Globulin Ratio 0.7 L 04/25/20 18:10: Lactic Acid 2.0 04/25/20 18:20: COVID-19 (HERMILA) Not Detected 04/25/20 18:55: Urine Color Bernadette, Urine Clarity Cloudy, Urine pH 5.0, Ur Specific [place] 1.025, Urine Protein 100 H, Urine Glucose (UA) 50 H, Urine Ketones 5 H, Urine Occult Blood 250 H, Urine Nitrite Positive H, Urine Bilirubin 3 H, Urine Urobilinogen 4 H, Ur Leukocyte Esterase 25 H, Urine RBC 0 SEEN, Urine WBC 0-5 SEEN, Ur Squamous Epith Cells 0-5 SEEN, Ur Transition Epith Cell 0-5 SEEN, Ur Renal Epithelial Cell 0 SEEN, Urine Bacteria 0 SEEN, Urine Mucus 1+ 04/25/20 20:05: Specimen Type ART, Sample Site R RADIAL, pH 7.29 L, Bicarbonate Actual 16.4 L, POC Total CO2 17, Base Excess Pending, O2 Saturation 97, O2 % 80, ABG pCO2 33.4 L, ABG pO2 104 H, Jb Test NA, O2 Delivery Device Bi Pap, EPAP 10, IPAP 20, Blood Gas Notified Whom ED , Blood Gas Notified Time 200404/25/20 22:15: Stl Giardia Antigen Cancelled, Hepatitis A IgM Ab Pending, Hep Bs Antigen Pending, Hep B Core IgM Ab Pending, Hepatitis C Ab (EIA) Pending 04/25/20 22:15: Total Creatine Kinase 51820 H 04/25/20 22:15: Phosphorus 6.4 H, Magnesium 2.8 H 04/25/20 22:15: Troponin I 0.067 H 04/25/20 22:30: Lactic Acid 2.2 H* 04/25/20 22:30: MRSA (PCR) Negative 04/25/20 22:55: Stl Giardia Antigen Pending 04/26/20 01:15: Troponin I 0.075 H 04/26/20 04:20: WBC 13.6 H, RBC 3.94 L, Hgb 12.1 L, Hct 38.1 L, MCV 96.7 H, MCH 30.7, MCHC 31.8 L, RDW Std Deviation 52.7 H, RDW Coeff of Stephenie 14.9 H, Plt Count 183, MPV 10.8, Immature Gran % (Auto) 0.300, Neut % (Auto) 85.8 H, Lymph % (Auto) 6.1 L, Letcher % (Auto) 7.5, Eos % (Auto) 0.1, Baso % (Auto) 0.2, Absolute Neuts (auto) 11.6 H, Absolute Lymphs (auto) 0.83, Nucleated RBC % 0, Differential Comment SCANNED 04/26/20 04:20: Troponin I 0.084 H 04/26/20 04:20: Sodium 138, Potassium 6.3 H*, Chloride 106, Carbon Dioxide 20.0 L, Anion Gap 12, BUN 106 H*, Creatinine 7.95 H*, Estim Creat Clear Calc 10.85, Est GFR (MDRD) Af Amer 9 L, Est GFR (MDRD) Non-Af 7 L, BUN/Creatinine Ratio 13.3, Glucose 100, Calcium 6.7 L, Total Bilirubin 0.70, AST 623 H, ALT 160 H, Alkaline Phosphatase 52, Total Protein 5.8 L, Albumin 2.3 L, Globulin 3.5, Albumin/Globulin Ratio 0.7 L 04/26/20 04:20: PT 30.8 H, INR 3.0 04/26/20 09:00: Sodium Pending, Potassium Pending, Chloride Pending, Carbon Dioxide Pending, Anion Gap Pending, BUN Pending, Creatinine Pending, Est GFR (MDRD) Af Amer Pending, Est GFR (MDRD) Non-Af Pending, BUN/Creatinine Ratio Pending, Glucose Pending, Calcium Pending 04/26/20 09:00: Total Creatine Kinase Pending 04/26/20 09:00: PT Pending, INR Pending, APTT Pending, Fibrinogen Pending, D-Dimer Quant (PE/DVT) Pending 04/26/20 09:00: Lactate Dehydrogenase Pending, Lipase Pending 04/26/20 09:00: Haptoglobin Pending 04/26/20 09:00: Blood Type Pending Clinical Impression(s) from Imaging Studies Brain CT 04/25/20 18:08 IMPRESSION: No acute intracranial process. Electronically Signed: Sisi Cardozo MD at 19:37 EDT Tel , Service support , Abdomen/Pelvis CT 04/25/20 18:18 IMPRESSION: Fluid throughout the colon and rectum, a nonspecific finding which may be secondary to proctocolitis. Consolidation within the lower lobes, more pronounced on the right. Atherosclerosis. Electronically Signed: Sisi Cardozo MD at 19:56 EDT Tel , Service support , Chest X-Ray 04/25/20 19:18 IMPRESSION: Right basilar atelectasis and/or pneumonia. Electronically Signed: Sisi Cardozo MD at 19:58 EDT Tel , Service support , Current Medications Albuterol Sulfate (Ventolin Aerosols) 2.5 mg INHALATION Q2H PRN PRN PRN Reason: SOB/Wheezing Aspirin (Aspirin) 300 mg RECTAL DAILY KARRIE Dextrose (D50w Syringe) 0 gm IV X1 PRN; Protocol PRN Reason: Hypoglycemia Glucagon () 1 mg IM .X1 PRN PRN Reason: Hypoglycemia Heparin Sodium (Porcine) (Heparin Na) 5,000 unit SC Q8 KARRIE Last Admin: 04/26/20 05:44 Dose: 5,000 unit Documented by: Sodium Chloride () 1,000 mls @ 150 mls/hr IV .Q6H40M KARRIE Last Infusion: 04/26/20 06:14 Dose: 100 mls/hr Documented by: Sodium Chloride () 250 mls @ 15 mls/hr IV .[id number] PRN PRN Reason: Saline Flush Norepinephrine Bitartrate 8 mg (/ Sodium Chloride) 250 mls @ 9.375 mls/hr CONT INF .[id number] KARRIE; Protocol Last Titration: 04/26/20 07:14 Dose: 8 mcg/min, 15 mls/hr Documented by: Calcium Gluconate 1 gm/ N/A 10 mls @ 0 mls/hr IV X1 KARRIE Last Admin: 04/26/20 06:42 Dose: 10 mls/hr Documented by: Vancomycin IV Pharmacy to Dose (1 ea/ Sodium Chloride) 500 mls @ 250 mls/hr IV X1 PRN; Protocol PRN Reason: Rx to Dose Piperacillin Sod/Tazobactam (Sod 3.375 gm/ Sodium Chloride) 50 mls @ 12.5 mls/hr IV Q12 KARRIE Famotidine 20 mg/ Sodium (Chloride) 10 mls @ 300 mls/hr IV Q24 KARRIE Vasopressin 20 units/ Sodium (Chloride) 25 mls @ 3 mls/hr IV .Q8H20M KARRIE Ondansetron HCl (Zofran) 4 mg IV Q8H PRN PRN PRN Reason: NAUSEA/VOMITING Sodium Chloride () 10 - 40 ml IV UD PRN PRN Reason: SALINE FLUSH Last Admin: 04/26/20 02:16 Dose: 10 ml Documented by: Assessment/Plan All Active Problems (Last Reviewed 04/26/20 @ 01:[address] Michel Salcido MD) Septic shock (Acute) Severe sepsis (Acute) Pneumonia (Acute) Proctocolitis (Acute) 59-year-old male with septic shock 1. The patient is in sepsis on pressors. I discussed dialysis catheter placement as well as central line placement and arterial line placement with the patient's . I discussed the risks including but not limited to bleeding, infection, pneumothorax. Patient's understands and would like lines placed. I discussed the increased risk of bleeding to the patient's INR being elevated as well as the fact that he is on Eliquis. Patient is in septic shock and this is considered a lifesaving maneuver. 2. Upon reviewing the CAT scan I believe the patient has a distended gallbladder with what appears to be some stranding around it. I recommended ultrasound the right upper quadrant to see if he has acute cholecystitis. Due to his septic shock and current status I believe a cholecystostomy tube would be warranted if it does appear that he has cholecystitis. This may not be able to be done here as we have no interventional radiology over the weekend. Thang Churchill MD Pager: [facility] [address] [place] [address], [address] [place] [address] Office:
--- NOTE | 2020-04-26 09:31 | RAD_ITS ---
STUDY: X-RAY CHEST REASON FOR EXAM: Male, 59 years old. ET tube placement -- NG tube placement -- central line placement -- dialysis cath placement TECHNIQUE: Single AP portable view of the chest. COMPARISON: 25 April 2020 FINDINGS: Endotracheal tube tip overlies the mid trachea 3 cm from the gulshan. Left central line tip overlies the distal SVC. Right central line tip also overlies the distal SVC. NG tube traverse the GE junction with distal portion not seen. Right lower lung airspace disease and moderate layering effusion is present. All prominent interstitial markings are noted throughout. There is no demonstrated pleural abnormality. Normal size heart. Normal mediastinum and danita. Normal visualized pulmonary arteries. Normal visualized aortic arch and descending thoracic aorta. Normal visualized thoracic spine. Normal visualized ribs, clavicles, and shoulders. There is no demonstrated abnormality of the visualized soft tissue structures of the upper abdomen. RAD/Chest 1 View (Portable) IMPRESSION: Lines and tubes as above with right lower lobe airspace disease and moderate layering effusion. Electronically Signed: Valdo Meek DO at 10:23 EDT , Service support ,
--- NOTE | 2020-04-26 09:32 | PCM.OPRPT ---
Problem List (1) Septic shock Status: Acute (2) Severe sepsis Status: Acute Report of Operation Date of Procedure: 04/26/20 Pre-Operative Diagnosis: Septic shock need for vascular access and hemodynamic monitoring Post-Operative Diagnosis: Same Surgery/Procedure Performed:: 1. Left ultrasound-guided triple-lumen catheter placement utilizing left IJ. 2. Right ultrasound-guided dialysis catheter placement utilizing right IJ. 3. Left radial arterial line placement, ultrasound-guided. Description of Procedure: The patient was laid in a flat position and the left neck was prepped and draped in usual sterile fashion. Ultrasound was used to localize the left IJ. It was patent. Anesthetic was injected into the skin and a small indy was made with a scalpel. Needle was placed under visualization into the left IJ and a guidewire was placed without resistance. Next the needle was removed and a dilator placed over the guidewire. The dilator was then removed and the catheter was placed in the guidewire was removed. All ports were drawn back and flushed and flushed easily. Caps were placed and a Biopatch was placed over the insertion site and then it was sutured to the skin using the included silk sutures. Bandage was applied. Next attention was paid to the right neck which was prepped and draped in the same sterile fashion. Ultrasound was used to localize the right IJ and an area of skin was anesthetized. A indy was made with a scalpel and the needle was placed under ultrasound guidance into the right IJ. Guidewire was placed and the needle was removed. Serial dilators were placed and then the catheter was placed over the guidewire and into position. The guidewire was removed. Both ports were drawn back and flushed with saline and flushed easily. Both will be instilled with heparin when it arrives on the floor. Bandage was placed and the catheter was sutured the skin using the included nylon suture. Next a left radial arterial line was placed in the left radial artery under ultrasound guidance. The 20 Cuban radial line was placed and sutured to the skin using a 3-0 Vicryl suture. It was bandaged and placed and flushed and gave a good reading on the monitor. Patient tolerated all the procedures well. Chest x-ray will be obtained after intubation Grafts/Implants Used: Triple-lumen central line, curved temporary dialysis catheter, arterial corbin
[2020-04-26] MEDS: Propofol 10MG/Ml 1,000 MG/100 ML Bottle 6 MG CONT INF (09:45)
[2020-04-26] MEDS: fentaNYL drip 100 ML 2.5 MCG CONT INF (09:45)
[2020-04-26 09:47] LABS: International Normalized Ratio 2.4; Prothrombin Time (Protime)PT. 25.3 SECONDS (11.7-14.9)
[2020-04-26 09:48] LABS: Fibrinogen 693 mg/dl (203-444); Partial Thromboplast Time 43.4 Seconds (24.1-36.2)
[2020-04-26 09:53] LABS: LDH 881 U/L (87-241); Lipase 86 U/L (73-393)
[2020-04-26] MEDS: 0.9% Normal Saline 1,000 ML 150 ML IV (10:00)
[2020-04-26 10:06] LABS: Anion Gap 10 (5-15); BUN 108 mg/dL (7-18); BUN/Creat Ratio 13.1 RATIO (10-20); Calcium,Total 6.8 mg/dL (8.5-10.1); Chloride 111 mmol/L (98-107); Creatinine, Serum 8.26 mg/dL (0.70-1.30); D-Dimer Quantitative (DVT/PE) 5.69 FEU/ug/m (0.27-0.49); EST Glomerular Filtration Rate 7 mL/min (>60); Est Glom Filt Rate - Afr Amer 9 mL/min (>60); Estimated Creatinine Clearance 10.44 ml/min; Glucose 115 mg/dL (74-106); Potassium 5.3 mmol/L (3.5-5.1); Sodium Level 139 mmol/L (136-145)
[2020-04-26] MEDS: Heparin 10,000 UNITS/10 ML Vial 2600 UNITS IV (10:32)
--- NOTE | 2020-04-26 10:45 | DS.PCM_ITS ---
Discharge Date and Diagnosis - Problem List Patient Problems: Active and Suspected Problems (Last Reviewed 04/26/20 @ 01:[address] Michel Salcido MD) Septic shock (Acute) Severe sepsis (Acute) Pneumonia (Acute) Proctocolitis (Acute) Date of Admission: 04/25/20 Date of Discharge: 04/26/20 - Primary Discharge Diagnosis Acute Problems: Active Problems (Last Reviewed 04/26/20 @ 01:[address] Michel Salcido MD) 1. Acute hypoxic respiratory failure secondary to acute septic shock secondary to acute suspected aspiration pneumonia secondary to acute cholecystitis 2. Acute kidney injury with hyperkalemia secondary to #1 requiring emergency dialysis 3. Acute transaminitis with shock liver secondary to #1 4. Acute rhabdomyolysis secondary to #1 5. Indeterminate cardiac enzymes secondary to #1 likely demand ischemia 6. Acute on chronic coagulopathy secondary to Eliquis therapy and component of shock liver secondary to #1 7. Metabolic encephalopathy secondary to #1, #2, #3, #4, #5 8. Paroxysmal atrial fibrillation 9. Hypertension 10. Hyperlipidemia 11. History of tobacco use - Secondary Discharge Diagnosis Chronic Problems: 1. Paroxysmal atrial fibrillation 2. Hypertension 3. Hyperlipidemia 4. 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 Left ultrasound-guided triple-lumen catheter placement utilizing left IJ. 2. Right ultrasound-guided dialysis catheter placement utilizing right IJ. 3. Left radial arterial line placement, ultrasound- guided. Procedures: 2-D Echocardiogram, EKG Summary of Care Provided: The patient is a 59 y/o M w/ PMHx: PAF on Eliquis, Chronic COPD, Tobacco use who presents to the [facility] ED on 04/25/20 with 3 to 4-day history of significant nausea, emesis and right upper quadrant abdominal pain worse with attempted oral intake in addition to loose stools with inability to maintain appropriate oral intake with decreased urination and onset of increased confusion prompting ED presentation. In the ED work-up included evidence of notable hypoxia with a GCS of 11 declining intubation therefore BiPAP was initiated with some mental status improvement with significant hypotension requiring initiation of pressor therapy with ED work-up including CBC with WC 19.1, hemoglobin 13.8, platelet 222 with left shift, coags with INR 3.1, PT 31.9, PTT 39, CMP with potassium 5.4, BUN/creat 94/7.60, lactic acid at that time 2 but increased to 2.2 on repeat, total bilirubin 0.8, AST/ALT 646/180, alk phos 58, troponin 0 0.074, total creatinine kinase 25,268, lipase 86, urinalysis with specific gravity 1.025, protein 100, glucose 50, ketone 5, occult blood 250, nitrate positive, leukocyte esterase 25 however no urine WBCs with no urine bacteria either, COVID testing negative, MRSA screen negative, hepatitis panel pending, chest x-ray demonstrating right basilar atelectasis, CT brain with no acute intracranial findings, CT abdomen and pelvis with fluid throughout the colon and rectum, nonspecific, possibly proctocolitis, consolidation bilateral lower lobes, more pronounced on the right however general surgery when later consulted felt as though the gallbladder was distended and had surrounding stranding. In the ED patient ministered IV vancomycin and Zosyn with transition to the ICU. On transfer patient continued to require pressor therapy, repeat CBC with WBC 13.6, hemoglobin 12.1, platelet 183 with ongoing left shift mildly improved, most recent repeat INR 2.4, PT 25.3, PTT 43.4, fibrinogen obtained and elevated 693, d-dimer 5.69, LDH 881, repeat CMP with potassium 6.3 with calcium gluconate, insulin, aerosols administered with repeat 5.3, BUN/creatinine increased now up to 108/8.26, total bilirubin 0.7, AST/ALT 623/160, repeat total creatinine kinase pending, cycled cardiac enzymes with most recent 0.084, stool studies included a positive lactoferrin, negative enteric pathology, negative C. difficile, urine culture pending per ED, negative urine antigens, blood culture x2 pending per ED, FFP x2 units ordered, curriculum development coordinator and general surgeon involved with significant noted on examination right upper quadrant pain with gallbladder ultrasound obtained and results pending but significant examination, nephrology consulted and agreed with placement of dialysis access as well as central line for planned dialysis, curriculum development coordinator consulted and following. Bedside evaluation per general surgeon with significant gallbladder with stones evident, very proximal, no IR available therefore once clinically stabilized recommendation for transfer to tertiary facility for consideration cholec ystostomy tube. Echocardiogram also obtained and results pending at transfer. Given significant worsening status patient intubated for airway safety. Patient maintained on per rectal aspirin, IV famotidine, fentanyl and propofol drip, vancomycin and Zosyn continued. Of note had initially been unaware of patient's [facility] medications eventually obtained and notable for Eliquis, confirmed with spouse that last dose of oral Eliquis was taken 04/25/2020 in the a.m. DAY OF DISCHARGE PROGRESS NOTE: Subjective: Patient with significantly worsening status requiring placement of dialysis access with planned dialysis, general surgery involvement given significant right upper quadrant rebound with suspected acute cholecystitis in addition to pneumonia likely aspiration secondary to cholecystitis with recent nausea and emesis and worsening respiratory status with poor airway management. Patient eventually intubated, pressors initiated and patient sedated. Given patient worsening status family amenable to transfer to tertiary facility for consideration cholecystostomy tube as well as continued aggressive tertiary facility ICU care. Objective: T101.6, heart rate 82, BP 83/48, respiratory rate 18, intubated, FiO2 30% Physical Examination: General: Evaluated prior to intubation, lethargic, awakens to stimuli, not alert, not oriented, significant discomfort with right upper quadrant palpation otherwise lethargic. Skin: normal color, turgor, no icterus, cyanosis. HEENT: AT/NC, EOM unable to be assessed well given lethargic status, PERRLA, dry MM. Lungs: Initially maintaining airway, maintaining secretions, decreased effort, mildly coarse bilateral bases, right greater than left, no obvious rales or wheezing. Heart: Regular rate and rhythm; no gallop, rub audible. Abdomen: soft, overweight, significant right upper quadrant rebound and guarding despite lethargy, difficult to assess distention, mildly hyperactive bowel sounds, difficult to assess HSM secondary to pain with examination. Extremities: no cyanosis, clubbing, or edema. Neurological: Evaluated prior to intubation, lethargic, awakens to stimuli, not alert, not oriented, significant discomfort with right upper quadrant palpation otherwise lethargic; cognitive function not baseline, lethargic; pupils equally reactive to light and accomodation; cranial nerves difficult to assess given sedate, lethargic status, moves extremities to stimuli, strength accordingly severely global decreased. Psychiatric: affect appears larger, ill-appearing, no acute evidence of depressive or anxiety feelings. Assessment and Plan: Please see hospital summary above. Prolonged care time: Additional time above 70-minute initial evaluation beyond even timeline required for transfer set up and discussion with consultants as well as family required an additional 60 minutes. CODE status: Given patient reticence for intubation in the ED discussed patient's status and current plan of care with his at length. Discussed CODE status at length including difference between FULL code, DNR-CCA and DNR-CC status. Following discussions about the differences in these status, requested continuation of full CODE STATUS and is amenable to his intubation for airway safety. Advanced Care Planning Face to Face Time: 16 minutes. Patient Problems: Active and Suspected Problems (Last Reviewed 04/26/20 @ 01:[address] Michel Salcido MD) Septic shock (Acute) Severe sepsis (Acute) Pneumonia (Acute) Proctocolitis (Acute) - Physical Exam Vitals/I&O's: Vital Signs Temp Pulse Resp BP Pulse Ox 101.6 F H 81 18 79/47 L 92 04/26/20 04:44 04/26/20 07:45 04/26/20 09:43 04/26/20 10:23 04/26/20 07:45 Oxygen Delivery Method Bi-pap Weight: 220 lb 3.869 oz Body Mass Index (BMI) 29.7 Finger Stick Blood Glucose 122 Intake and Output for Last 24 Hours 04/24/20 04/25/20 04/26/20 23:59 23:59 23:59 Intake Total 3680 / 3740 1247.29 / 1247.29 Output Total 110 / 110 Balance 3680 / 3690 1137.29 / 1137.29 Microbiology Past 72 Hours 04/25/20 22:15 Stool Enteric Bacteriology - Final 04/25/20 22:15 Stool C. difficile DNA Amplification - Final 04/25/20 22:15 Stool Stool Lactoferrin - Final 04/25/20 18:55 Urine Catheter - Catheter Legionella Antigen - Final 04/25/20 18:55 Urine Catheter - Catheter Streptococcus pneumoniae Antigen (M - Final Laboratory Results 04/25/20 18:10: WBC 19.1 H, RBC 4.48 L, Hgb 13.8, Hct 42.0, MCV 93.8, MCH 30.8, MCHC 32.9, RDW Std Deviation 50.0 H, RDW Coeff of Stephenie 14.6, Plt Count 222, MPV 10.6, Immature Gran % (Auto) 0.800, Neut % (Auto) 80.2 H, Lymph % (Auto) 6.8 L, [place] % (Auto) 10.9 H, Eos % (Auto) 1.1, Baso % (Auto) 0.2, Absolute Neuts (auto) 15.3 H, Absolute Lymphs (auto) 1.29, Nucleated RBC % 0, Differential Comment , Diff Path Review March04/25/20 18:10: PT 31.9 H, INR 3.1, APTT 39.0 H 04/25/20 18:10: Sodium 136, Potassium 5.4 H, Chloride 102, Carbon Dioxide 23.0, Anion Gap 11, BUN 94 H, Creatinine 7.60 H*, Estim Creat Clear Calc 11.01, Est GFR (MDRD) Af Amer 9 L, Est GFR (MDRD) Non-Af 8 L, BUN/Creatinine Ratio 12.4, Glucose 99, Calcium 7.7 L, Total Bilirubin 0.80, AST 646 H, ALT 180 H, Alkaline Phosphatase 58, Troponin I 0.074 H, Total Protein 6.5, Albumin 2.7 L, Globulin 3.8, Albumin/Globulin Ratio 0.7 L 04/25/20 18:10: Lactic Acid 2.0 04/25/20 18:20: COVID-19 (HERMILA) Not Detected 04/25/20 18:55: Urine Color Bernadette, Urine Clarity Cloudy, Urine pH 5.0, Ur Specific [place] 1.025, Urine Protein 100 H, Urine Glucose (UA) 50 H, Urine Ketones 5 H, Urine Occult Blood 250 H, Urine Nitrite Positive H, Urine Bilirubin 3 H, Urine Urobilinogen 4 H, Ur Leukocyte Esterase 25 H, Urine RBC 0 SEEN, Urine WBC 0-5 SEEN, Ur Squamous Epith Cells 0-5 SEEN, Ur Transition Epith Cell 0-5 SEEN, Ur Renal Epithelial Cell 0 SEEN, Urine Bacteria 0 SEEN, Urine Mucus 1+ 04/25/20 20:05: Specimen Type ART, Sample Site R RADIAL, pH 7.29 L, Bicarbonate Actual 16.4 L, POC Total CO2 17, Base Excess Pending, O2 Saturation 97, O2 % 80, ABG pCO2 33.4 L, ABG pO2 104 H, Jb Test NA, O2 Delivery Device Bi Pap, EPAP 10, IPAP 20, Blood Gas Notified Whom ED , Blood Gas Notified Time 200404/25/20 22:15: Stl Giardia Antigen Cancelled, Hepatitis A IgM Ab Pending, Hep Bs Antigen Pending, Hep B Core IgM Ab Pending, Hepatitis C Ab (EIA) Pending 04/25/20 22:15: Total Creatine Kinase 25656 H 04/25/20 22:15: Phosphorus 6.4 H, Magnesium 2.8 H 04/25/20 22:15: Troponin I 0.067 H 04/25/20 22:30: Lactic Acid 2.2 H* 04/25/20 22:30: MRSA (PCR) Negative 04/25/20 22:55: Stl Giardia Antigen Pending 04/26/20 01:15: Troponin I 0.075 H 04/26/20 04:20: WBC 13.6 H, RBC 3.94 L, Hgb 12.1 L, Hct 38.1 L, MCV 96.7 H, MCH 30.7, MCHC 31.8 L, RDW Std Deviation 52.7 H, RDW Coeff of Stephenie 14.9 H, Plt Count 183, MPV 10.8, Immature Gran % (Auto) 0.300, Neut % (Auto) 85.8 H, Lymph % (Auto) 6.1 L, [place] % (Auto) 7.5, Eos % (Auto) 0.1, Baso % (Auto) 0.2, Absolute Neuts (auto) 11.6 H, Absolute Lymphs (auto) 0.83, Nucleated RBC % 0, Differential Comment SCANNED 04/26/20 04:20: Troponin I 0.084 H 04/26/20 04:20: Sodium 138, Potassium 6.3 H*, Chloride 106, Carbon Dioxide 20.0 L, Anion Gap 12, BUN 106 H*, Creatinine 7.95 H*, Estim Creat Clear Calc 10.85, Est GFR (MDRD) Af Amer 9 L, Est GFR (MDRD) Non-Af 7 L, BUN/Creatinine Ratio 13.3, Glucose 100, Calcium 6.7 L, Total Bilirubin 0.70, AST 623 H, ALT 160 H, Alkaline Phosphatase 52, Total Protein 5.8 L, Albumin 2.3 L, Globulin 3.5, Albumin/Globulin Ratio 0.7 L 04/26/20 04:20: PT 30.8 H, INR 3.0 04/26/20 09:00: Sodium 139, Potassium 5.3 H, Chloride 111 H, Carbon Dioxide 18.0 L, Anion Gap 10, BUN 108 H*, Creatinine 8.26 H*, Estim Creat Clear Calc 10.44, Est GFR (MDRD) Af Amer 9 L, Est GFR (MDRD) Non-Af 7 L, BUN/Creatinine Ratio 13.1, Glucose 115 H, Calcium 6.8 L 04/26/20 09:00: Total Creatine Kinase Pending 04/26/20 09:00: PT 25.3 H, INR 2.4, APTT 43.4 H, Fibrinogen 693 H, D-Dimer Quant (PE/DVT) 5.69 H* 04/26/20 09:00: Lactate Dehydrogenase 881 H, Lipase 86 04/26/20 09:00: Haptoglobin Pending 04/26/20 09:00: Blood Type A POSITIVE Current Medications Albuterol Sulfate (Ventolin Aerosols) 2.5 mg INHALATION Q2H PRN PRN PRN Reason: SOB/Wheezing Aspirin (Aspirin) 300 mg RECTAL DAILY [facility] Dextrose (D50w Syringe) 0 gm IV X1 PRN; Protocol PRN Reason: Hypoglycemia Etomidate (Amidate) 20 mg IV X1 ONE Stop: 04/26/20 09:31 Glucagon () 1 mg IM .X1 PRN PRN Reason: Hypoglycemia Heparin Sodium (Porcine) (Heparin Na) 5,000 unit SC Q8 [facility] Last Admin: 04/26/20 05:44 Dose: 5,000 unit Documented by: Sodium Chloride () 1,000 mls @ 150 mls/hr IV .Q6H40M [facility] Last Admin: 04/26/20 10:00 Dose: 150 mls/hr Documented by: Sodium Chloride () 250 mls @ 15 mls/hr IV .[id number] PRN PRN Reason: Saline Flush Norepinephrine Bitartrate 8 mg (/ Sodium Chloride) 250 mls @ 9.375 mls/hr CONT INF .[id number] [facility]; Protocol Last Titration: 04/26/20 10:23 Dose: 20 mcg/min, 37.5 mls/hr Documented by: Calcium Gluconate 1 gm/ N/A 10 mls @ 0 mls/hr IV X1 [facility] Last Admin: 04/26/20 06:42 Dose: 10 mls/hr Documented by: Vancomycin IV Pharmacy to Dose (1 ea/ Sodium Chloride) 500 mls @ 250 mls/hr IV X1 PRN; Protocol PRN Reason: Rx to Dose Piperacillin Sod/Tazobactam (Sod 3.375 gm/ Sodium Chloride) 50 mls @ 12.5 mls/hr IV Q12 [facility] Famotidine 20 mg/ Sodium (Chloride) 10 mls @ 300 mls/hr IV Q24 [facility] Vasopressin 20 units/ Sodium (Chloride) 25 mls @ 3 mls/hr IV .Q8H20M [facility] Last Admin: 04/26/20 09:55 Dose: 0.04 units/min, 3 mls/hr Documented by: Propofol (Diprivan) 1,000 mg in 100 mls @ 5.994 mls/hr CONT INF .Q12H [facility]; Protocol Fentanyl () 100 mls @ 2.5 mls/hr CONT INF UD [facility]; Protocol Midazolam HCl (Versed) 4 mg IV X1 ONE Stop: 04/26/20 10:29 Ondansetron HCl (Zofran) 4 mg IV Q8H PRN PRN PRN Reason: NAUSEA/VOMITING Sodium Chloride () 10 - 40 ml IV UD PRN PRN Reason: SALINE FLUSH Last Admin: 04/26/20 10:24 Dose: 40 ml Documented by: Home Medications: Medications to take at Discharge Unobtainable 04/25/20 Primary Care Physician: [facility] [Primary Care Provider] - Disposition: Acute care Hospital Minutes spent on discharge:: 120 Patient Condition:: Critical Medical Necessity - Tobacco Use Smoking Status: Former smoker Meaningful Use Info Meaningful Use Diagnoses (Choose all that apply): None applicable Inpatient E&M: 66785 Disch Hosp Procedures: Other Procedure - See Report - Additional billin x 1 and [id number]
[2020-04-26] MEDS: Famotidine 200 MG/20 ML MDV 20 MG in 0.9% Normal Saline (Pres. free 8 ML 300 MG IV (11:23)
[2020-04-26 12:02] LABS: Triglycerides 270 mg/dL
[2020-04-26 12:07] LABS: Blood Gas Specimen Type ART; Mode A-C; O2 Delivery Device Vent; SITE ART LINE
[2020-04-26 12:08] LABS: Bicarbonate 13.6 mmol/L (22-26); FI02 50; PEEP 5; PO2 66 mmHG (75-100); RR 14; Time Given 1040; Vt 500; pCO2 28.3 mmHg (35-45); pH 7.29 (7.35-7.45)
[2020-04-26 12:09] LABS: Base Excess -13 mmol/L (-2 to +2); SO2 91 % (95-99); Total Carbon Dioxide 14 mmol/L
[2020-04-26 12:09] LABS: CPK Total, Creatine Kinase 24689 U/L (39-308)
[2020-04-26 12:42] LABS: Base Excess -10 mmol/L (-2 to +2)
[2020-04-27 14:07] LABS: HEPATITIS B SURFACE AG Negative (Negative); Hepatitis A IgM Antibody Negative (Negative); Hepatitis B Core AB IgM Negative (Negative)
[2020-04-28 05:34] LABS: Hep C Antibodies 0.1 s/co ratio (0.0-0.9)
[2020-04-28 05:35] LABS: Haptoglobin 277 mg/dL (29-370)
[2020-04-28 14:43] LABS: Giardia Lamblia, Stool EIA Negative (Negative)
[2020-04-29 09:39] LABS: Pathologist Review Reviewed
== END 2020-04-26 13:50 | disposition short-term general hospital (02) | DRG 871 ==
LOC: ED 20:29 → ICU 20:48
PROVIDERS: Admitting Provider Hospitalist; Emergency Provider Emergency Medicine; Visit Provider Family Medicine
DX: A41.9 Sepsis, unspecified organism (principal); R65.21 Severe sepsis with septic shock; N17.0 Acute kidney failure with tubular necrosis; K72.00 Acute and subacute hepatic failure without coma; G93.41 Metabolic encephalopathy; J96.01 Acute respiratory failure with hypoxia; J69.0 Pneumonitis due to inhalation of food and vomit; M62.82 Rhabdomyolysis; I24.8 Other forms of acute ischemic heart disease; E87.2 Acidosis; K81.0 Acute cholecystitis; I50.9 Heart failure, unspecified; I11.0 Hypertensive heart disease with heart failure; I48.0 Paroxysmal atrial fibrillation; Z99.3 Dependence on wheelchair; I25.2 Old myocardial infarction; E87.5 Hyperkalemia; E78.5 Hyperlipidemia, unspecified; Z87.891 Personal history of nicotine dependence; M79.7 Fibromyalgia; J44.9 Chronic obstructive pulmonary disease, unspecified
CPT/HCPCS: 31500; 36600; 51702; 70450; 71045; 74176; 76705; 80048; 80053; 80074; 81001; 82550; 82803; 83010; 83605; 83615; 83630; 83690; 83735; 84100; 84478; 84484; 85025; 85379; 85384; 85610; 85730; 86900; 86901; 87040; 87086; 87329; 87449; 87493; 87506; 87635; 87641; 93005; 93306; 94002; 94003; 99251; 99285; G2023; J7030; J7040; J7050; P9017; Q9957; A4216; C1752; C8929; G0463; J0610; J3490; U0003